=== PATIENT | male | born 1970 | race Caucasian/White ===

== ENCOUNTER → 2019-09-12 | Outpatient (CLI) | payer BC ==
[~2019-09-12] MED LIST: BARIUM for suspension 96% w/w (Vanilla Silq Medium Density) PO ONE; BARIUM for suspension 98% w/w (Vanilla Silq High Density) PO ONE
--- NOTE | 2019-09-12 11:11 | Diagnostic Imaging Report ---
INDICATION: Preoperative for gastric sleeve surgery. The patient ingested effervescent crystals as well as thin and thick barium and imaging of the esophagus, stomach and proximal small bowel was performed. 1 minute 19 seconds of fluoroscopic time was utilized. The esophagus has a smooth contour. No mass or stricture is identified. No gastroesophageal reflux or hiatal hernia is identified. The stomach has a normal configuration. There is prompt emptying into the small bowel. The duodenal bulb is without deformity. No mass or ulceration is seen. IMPRESSION: Unremarkable upper gastrointestinal. Dictated by: Dictated on workstation # [id number]
== END ==
LOC: RAD 09:07
PROVIDERS: ATTEND Nurse Practitioner Family
DX: K21.9 Gastro-esophageal reflux disease without esophagitis (principal)
CPT/HCPCS: 74246

== ENCOUNTER 2019-10-21 09:24 | Outpatient (CLI) | payer BC ==
[~2019-10-21] VITALS: Ht 175 cm; Wt 138.2 kg
[2019-10-21] MEDS ORDERED: MELO15TA39 PO (09:34)
[2019-10-21 09:37] VITALS: BP 131/81
[2019-10-21 10:28] LABS: BASOPHILS % (AUTO) 0 % (0-10); EOSINOPHILS # (AUTO) 0.1 10^3/uL (0.0-0.3); EOSINOPHILS % (AUTO) 2 % (0-10); HEMATOCRIT 47 % (40-54); HEMOGLOBIN 15.8 G/DL (13.3-17.7); LYMPHOCYTES # (AUTO) 1.3 X 10^3 (1.0-4.0); LYMPHOCYTES % (AUTO) 24 % (12-44); MEAN CORPUSCULAR HEMOGLOBIN 27 PG (25-34); MEAN CORPUSCULAR HGB CONC 34 G/DL (32-36); MEAN CORPUSCULAR VOLUME 80 FL (80-99); MONOCYTES # (AUTO) 0.5 X 10^3 (0.0-1.0); MONOCYTES % (AUTO) 9 % (0-12); NEUTROPHILS # (AUTO) 3.5 X 10^3 (1.8-7.8); NEUTROPHILS % (AUTO) 65 % (42-75); PLATELET COUNT 109 10^3/uL (130-400); RED CELL DISTRIBUTION WIDTH 14.3 % (10.0-14.5); WHITE BLOOD COUNT 5.3 10^3/uL (4.3-11.0)
== END 2019-10-21 10:22 ==
LOC: PREOP 09:24
PROVIDERS: ATTEND Surgery
DX: Z01.812 Encounter for preprocedural laboratory examination (principal); Z11.2 Encounter for screening for other bacterial diseases; E66.01 Morbid (severe) obesity due to excess calories
CPT/HCPCS: 36415; 85025; 87081

== ENCOUNTER 2019-10-24 11:12 | Day surgery (SDC) | payer BC ==
[~2019-10-24] VITALS: Ht 175 cm; Wt 136.4 kg
[2019-10-24] VITALS (13 sets, daily range): BP systolic 93–165; BP diastolic 52–89
[~2019-10-24 11:12] MED LIST changes: -BARIUM for suspension 96% w/w (Vanilla Silq Medium Density) PO ONE; -BARIUM for suspension 98% w/w (Vanilla Silq High Density) PO ONE; +MELO15TA39 PO
[2019-10-24] MEDS ORDERED: ceFAZolin 2 GM/50 ML NS 50 ML ONE (11:37)
[2019-10-24] MEDS: LACTATED RINGERS 1,000 ML IV PRN ×3 (11:48→16:47)
[2019-10-24] MEDS ORDERED: NS IV 1000 ML 1,000 ML IV SCH (11:56)
--- NOTE | 2019-10-24 11:56 | Progress Note-Pre Operative ---
Pre-Operative Progress Note H&P Reviewed The H&P was reviewed, patient examined and no changes noted. Date Seen by Provider: Oct 24, 2019 Time Seen by Provider: 11:50 Date H&P Reviewed: Oct 24, 2019 Time H&P Reviewed: 11:50 Pre-Operative Diagnosis: morbid obesity, HTN, VIVI HARRISON SAUL MD Oct 24, 2019 11:56
[2019-10-24] MEDS ORDERED: NALOXONE 0.4 MG/ML 1 ML (NARCAN) VIAL IV PRN (12:00)
[2019-10-24] MEDS ORDERED: fentaNYL INJECTION 1,000 MCG in NS (IVPB) 80 ML IV SCH (12:00)
[2019-10-24] MEDS ORDERED: ceFAZolin 2 GM/50 ML NS 50 ML IV ONE (12:00)
[2019-10-24] MEDS ORDERED: METOCLOPRAMIDE INJ 10 MG/2 ML (REGLAN) IV PRN (12:00)
[2019-10-24] MEDS ORDERED: metroNIDAZOLE 500MG/100ML IVPB 100 ML IV SCH (12:00)
[2019-10-24] MEDS ORDERED: diphenhydrAMINE 50 MG/ML INJ (BENADRYL) IV PRN (12:00)
[2019-10-24] MEDS ORDERED: CATHETER FLUSH 10 ML SYR IV PRN (12:00)
[2019-10-24] MEDS ORDERED: diphenhydrAMINE 50 MG/ML INJ (BENADRYL) IVP PRN (12:00)
[2019-10-24] MEDS ORDERED: ONDANSETRON 4 MG/2 ML (SDV) Z0FRAN IV ONE (12:15)
[2019-10-24] MEDS ORDERED: FAMOTIDINE 20MG/2ML IV (PEPCID) IV ONE (12:15)
[2019-10-24] MEDS ORDERED: BUP/EPI 0.5% 1:200,000 (SENSORCAINE) 30 ML VIAL ONE (13:08)
[2019-10-24] MEDS ORDERED: ONDANSETRON 4 MG/2 ML (SDV) Z0FRAN ONE ×3 (13:20→15:34)
[2019-10-24] MEDS ORDERED: MIDAZOLAM 2 MG/2 ML (VERSED) VIAL ONE ×2 (13:20→13:24)
[2019-10-24] MEDS ORDERED: LIDOCAINE PF 2% 5 ML (XYLOCAINE) VIAL ONE ×2 (13:20→13:24)
[2019-10-24] MEDS ORDERED: SEVOFLURANE (ULTANE) 15 ML INHAL SOLN ONE ×5 (13:20→16:30)
[2019-10-24] MEDS ORDERED: DEXAMETHASONE 10 MG/ML (DECADRON) 1 ML VIAL ONE ×2 (13:20→13:24)
[2019-10-24] MEDS ORDERED: proPOfol 200 MG/20 ML (DIPRIVAN) VIAL IV ONE ×2 (13:20→13:24)
[2019-10-24] MEDS ORDERED: fentaNYL INJECTION 100 MCG/2 ML AMP ONE ×6 (13:20→17:47)
[2019-10-24] MEDS ORDERED: ROCURONIUM 10 MG/ML 5 ML SYRINGE IV ONE ×2 (13:24→15:29)
[2019-10-24] MEDS ORDERED: ceFAZolin 2 GM/50 ML NS 50 ML IV SCH (14:00)
--- NOTE | 2019-10-24 14:22 | Discharge Inst-Surgical ---
D/C Lap Instructions-DORYS Follow Up Appt in 2 weeks Activity as tolerated No driving for 24 hours No driving while on pain medications Incentive Spirometry use every 2 hours while awake Phase 1 clear liquid diet next 2 weeks. Symptoms to Report: Fever over 101 degree F, Nausea/Vomiting Infection Signs and Symptoms to report: Increased redness, Foul odor of wound, Increased drainage Bathing instructions: May shower Operative Area Clean/Dry; Keep incision clean/dry If any problems/questions: Contact your physician or go to Emergency Room HARRISON SAUL MD Oct 24, 2019 14:22
[2019-10-24] MEDS ORDERED: HYDROmorphone 2 MG/ML VIAL (DILAUDID) ONE (15:33)
[2019-10-24] MEDS ORDERED: morphine INJ 10 MG/ML 1ML (SYR OR VIAL) ONE (15:33)
[2019-10-24] MEDS ORDERED: MEPERIDINE (DEMEROL) INJ 50 MG/ML ONE (15:33)
[2019-10-24] MEDS ORDERED: PROMETHAZINE INJ 25 MG/ML (PHENERGAN) AMP ONE (15:34)
[2019-10-24] MEDS ORDERED: GLYCOPYRROLATE 0.2 MG/ML (ROBINUL) 2 ML VIAL ONE (15:54)
[2019-10-24] MEDS ORDERED: NEOSTIGMINE 3 MG/3 ML VIAL ONE (15:54)
--- NOTE | 2019-10-24 16:06 | Progress Note-Post Operative ---
Post-Operative Progess Note Surgeon (s)/Machine Bobbin Winder (s) Surgeon HARRISON SAUL MD Machine Bobbin Winder: georgina martinez EQUITY SALES ASSISTANT Pre-Operative Diagnosis morbid obesity, HTN, VVII Post-Operative Diagnosis same Procedure & Operative Findings Date of Procedure 10/24/19 Procedure Performed/Findings laparoscopic gastric sleeve resection Anesthesia Type get Estimated Blood Loss Estimated blood loss (mL): minimal Specimens/Packing Specimens Removed stomach HARRISON SAUL MD Oct 24, 2019 16:06
[2019-10-24] MEDS ORDERED: morphine INJ 10 MG/ML 1ML (SYR OR VIAL) IVP ONE (16:30)
[2019-10-24] MEDS ORDERED: MEPERIDINE (DEMEROL) INJ 50 MG/ML IVP ONE (16:30)
[2019-10-24] MEDS ORDERED: PROMETHAZINE INJ 25 MG/ML (PHENERGAN) AMP IVP ONE (16:30)
[2019-10-24] MEDS ORDERED: HYDROmorphone 2 MG/ML VIAL (DILAUDID) IV ONE (16:30)
--- NOTE | 2019-10-24 17:03 | Anesthesia-General Post-Op ---
General Patient Condition Mental Status/LOC: Same as Preop Cardiovascular: Satisfactory Nausea/Vomiting: Absent Respiratory: Satisfactory Pain: Controlled Complications: Absent Post Op Complications Complications None Follow Up Care/Instructions Patient Instructions None needed. Anesthesia/Patient Condition Patient Condition Patient is doing well, no complaints, stable vital signs, no apparent adverse anesthesia problems. No complications reported per nursing. LATRICIA MOFFETT CRNA Oct 24, 2019 17:03
[2019-10-24] MEDS: ONDANSETRON 4 MG/2 ML (SDV) Z0FRAN IVP PRN ×2 (17:11→17:17)
[2019-10-24] MEDS: 1/2 NS W/KCL 20 MEQ/L 1,000 ML IV SCH ×2 (17:41→18:21)
[2019-10-24] MEDS: RT-ALBUTEROL SULF 2.5 MG/3 ML PRE-MIX VIAL INH SCH ×3 (17:41→20:46)
[2019-10-24] MEDS: METOCLOPRAMIDE INJ 10 MG/2 ML (REGLAN) IVP SCH ×2 (17:42→18:38)
[2019-10-24] MEDS: ONDANSETRON 4 MG/2 ML (SDV) Z0FRAN IVP SCH ×2 (17:43→18:38)
--- NOTE | 2019-10-24 18:33 | NUR ---
ROB SUMMERS admitted to room 410-1, with an admitting diagnosis of POST OP GASTRIC SLEEVE, on from [facility], accompanied by STAFF AND GIRLFRIEND .ROB SUMMERS introduced to surroundings, call light, bed controls, phone, TV, temperature control, lights, meal times, smoking policy, visitor policy, side rail policy, bathrooms and showers. Patient Rights given to patient in the handbook. ROB SUMMERS verbalizes understanding that [facility] is not responsible for the loss or damage to any personal effects or valuables that are kept in the patients posession during their hospitalization. The following Patient Care Plans and discharge were discussed with the patient. ROB SUMMERS verbalizes understanding of Interdisciplinary Patient Education. Patient were informed about the Rapid Response Team and its purpose.
[2019-10-24] MEDS: ceFAZolin 2 GM/NS 50 ML (COMPOUNDED) IV SCH (19:30)
[2019-10-24] MEDS: metroNIDAZOLE 500 MG/100 ML IVPB (PRE-MIX) IV SCH (19:30)
[2019-10-24] MEDS ORDERED: FLU QUADRIvalent (5+ YOA) 2019-2020 (AFLURIA) 0.5 ML IM ONE (20:30)
[2019-10-24] MEDS ORDERED: RT-ALBUTEROL/IPRATROPIUM 3 ML (DUONEB) VIAL ONE (20:36)
[2019-10-24] MEDS: ENOXAPARIN 40 MG/0.4 ML (LOVENOX) SYR SC SCH (21:10)
--- NOTE | 2019-10-24 21:53 | NUR ---
PCT notified this RN that pt blood pressure was 93/52. Retook the blood pressure and it was 99/65. Notified Dr. Tripathi, received order for 1L Bolus LR.
[2019-10-24] MEDS ORDERED: LACTATED RINGERS 1,000 ML IV ONE (22:00)
--- NOTE | 2019-10-24 22:44 | OPERATIVE REPORT ---
DATE OF SERVICE: 10/24/2019 ATTENDING PRIMARY CARE PHYSICIAN: Dr. Sid Weeks. PREOPERATIVE DIAGNOSES: Morbid obesity, hypertension, sleep apnea. POSTOPERATIVE DIAGNOSES: Morbid obesity, hypertension, sleep apnea. PROCEDURE: Laparoscopic gastric sleeve resection. SURGEON: Harrison Saul MD. EDUCATION ADMINISTRATIVE ASSISTANT: Omer Hart APRN. ANESTHESIA: General endotracheal. ESTIMATED BLOOD LOSS: Minimal. FINDINGS: Moderate liver steatosis with nodular changes. Gallbladder appeared normal. No hiatal hernia. DISPOSITION: The patient tolerated the procedure well. INDICATIONS: The patient is a 48-year-old male in her surgical weight loss program for the laparoscopic gastric sleeve resection and meets the medical criteria for bariatric surgery. He gained the majority of his adult weight in the past 20 years and has tried a number of diet and exercise attempts with no success. He has tried diet programs including [place] ketogenic diet, low calorie, low carbohydrate, Weight Watchers, SlimFast diets with no success. He has also tried exercise regimens including walking with no success. He has also tried phentermine and was able to lose approximately 30 pounds; however, after stopping the medication, regained his weight back as well as more. His medical comorbidities related to his obesity include hypertension, obstructive sleep apnea, nonalcoholic steatohepatitis, and degenerative joint disease. DESCRIPTION OF PROCEDURE: The patient was brought to the operating room, laid supine on the table. After adequate IV pain and sedative medications and general endotracheal intubation, the abdomen was prepped and draped in standard surgical fashion. A 0.5% Marcaine with epinephrine was used to anesthetize overlying skin left upper abdominal quadrant and a transverse skin incision made using 15 blade. An 0 silk suture was applied to the medial aspect incision for retraction and a Veress needle inserted with a low opening pressure of 0 mmHg and the abdomen was then insufflated to 15 mmHg pressure. The Veress needle removed and a 5 mm XL trocar placed followed by a 5 mm 45-degree angle laparoscope visualizing the peritoneal cavity. A 4-quadrant abdominal exploration was performed. There was significant liver steatosis with some nodular changes. Gallbladder appeared normal. There was no hiatal hernia identified. Under direct visualization, we then proceeded to place a midabdominal left midline 10 mm port after the skin and peritoneal lining were anesthetized using 0.5% Marcaine with epinephrine and a transverse skin incision made using 15 blade. In a similar manner, a midabdominal left, right of midline 15 mm port was placed followed by a right upper abdominal quadrant 5 mm port. An area was then anesthetized in the epigastric region and a transverse skin incision made using 15 blade. A tract was then created to the abdominal wall layers using a trocar to a 5 mm port and through this opening, a medium size Ros Liver Retractor was placed and the left lobe of the liver was then retracted anteriorly and superiorly. The patient was then placed in steep reverse Trendelenburg position. We then measured 6 cm from the pylorus along the greater curvature and marked this with a marking pen. The gastrocolic ligament was then opened next to the stomach using the Sonicision entering the lesser sac. We then proceeded with caudal dissection until we were approximately 2 cm below our marking using the Sonicision with visualization of good hemostasis. We then proceeded cephalad taking the short gastric vessels using the Sonicision. The angle of His connective tissue fibers were then taken down as well as the posterior stomach behind this region. Good hemostasis was observed. Under direct visualization, a 36-N[place]ian ViSiGi catheter was then placed in the stomach and then under direct visualization and guided into the pylorus. Using this as our guide, we then proceeded with our gastric sleeve resection, first using a 45 mm polyglycolic black load 2 cm below our marking. We then proceeded with two 60 mm black loads followed by 60 mm purple load and a 45 mm purple load to finish our gastric sleeve resection leaving approximately 2 cm near the gastroesophageal junction. Good hemostasis was observed. The staple line corners were then clipped with 5 mm clips. Tisseel fibrin glue was then placed onto the staple line and the omentum placed back onto the staple line. Before this, a leak test was performed and the ViSiGi was insufflated to 35 of pressure with no leak identified. The ViSiGi was then placed to suction taken off suction and then removed. The stomach was then removed through the 15 mm port site. The fascia and peritoneum to the 15 and 10 mm port site were then closed under direct visualization using a Gus-Annette device and 0 Vicryl suture. The abdomen was then desufflated and remaining ports removed. All skin incisions were closed using 4-0 Monocryl running subcuticular sutures. Wounds were then cleaned and covered with Dermabond. The patient tolerated the procedure well. We will admit him 23-hour observation. We will proceed with pain control with a EXECUTIVE ADMINISTRATIVE ASST pump. We will also proceed with DVT prophylaxis with calf SCDs, early ambulation as well as Lovenox injections. He can have ice chips today and then we will proceed with a phase I clear liquid diet. Once he is tolerating 60 mL of clear liquids every 30 minutes, has adequate pain control with oral pain medications, ambulating well, we will discharge him home. He will be instructed to proceed with a phase 1 clear liquid diet for the next two weeks as well as to avoid any lifting or exertion for that time period as well. Job ID: [id number] DocumentID: [id number] Dictated Date: 10/24/2019 16:16:51 Visitor Services Assistant Date: 10/24/2019 22:43:04 Dictated By: HARRISON SAUL MD
[2019-10-25] VITALS: BP 131/58
[2019-10-25] MEDS: ONDANSETRON 4 MG/2 ML (SDV) Z0FRAN IVP SCH ×3 (00:10→09:29)
[2019-10-25] MEDS: METOCLOPRAMIDE INJ 10 MG/2 ML (REGLAN) IVP SCH ×2 (00:10→06:20)
[2019-10-25] MEDS: ONDANSETRON 4 MG/2 ML (SDV) Z0FRAN IVP PRN ×2 (02:51→12:39)
[2019-10-25] MEDS: metroNIDAZOLE 500 MG/100 ML IVPB (PRE-MIX) IV SCH ×2 (03:31→11:25)
[2019-10-25] MEDS: ceFAZolin 2 GM/NS 50 ML (COMPOUNDED) IV SCH ×2 (03:31→11:25)
[2019-10-25] MEDS: RT-ALBUTEROL SULF 2.5 MG/3 ML PRE-MIX VIAL INH SCH ×4 (03:55→14:54)
[2019-10-25 04:00] VITALS: BP 116/73
[2019-10-25] MEDS: 1/2 NS W/KCL 20 MEQ/L 1,000 ML IV SCH (04:57)
[2019-10-25 06:01] LABS: HEMATOCRIT 38 % (40-54); HEMOGLOBIN 12.6 G/DL (13.3-17.7); MEAN CORPUSCULAR HEMOGLOBIN 27 PG (25-34); MEAN CORPUSCULAR HGB CONC 33 G/DL (32-36); MEAN CORPUSCULAR VOLUME 81 FL (80-99); MEAN PLATELET VOLUME 12.2 FL (7.4-10.4); PLATELET COUNT 200 10^3/uL (130-400); RED CELL DISTRIBUTION WIDTH 14.2 % (10.0-14.5); WHITE BLOOD COUNT 22.4 10^3/uL (4.3-11.0)
[2019-10-25 06:27] LABS: CALCIUM 8.1 MG/DL (8.5-10.1); CREATININE SERUM 1.52 MG/DL (0.60-1.30); POTASSIUM 5.5 MMOL/L (3.6-5.0)
[2019-10-25 06:46] LABS: LYMPHOCYTES % (MANUAL) 2 %; MONOCYTES % (MANUAL) 2 %; NEUTROPHILS % (MANUAL) 96 %; RBC MORPH NORMAL
[2019-10-25 08:00] VITALS: BP 119/80
[2019-10-25] MEDS: SENNA W/DOCUSATE (SENOKOT S) TABLET PO SCH (09:00)
[2019-10-25] MEDS ORDERED: PANTOPRAZOLE 40 MG (PROTONIX) TAB PO SCH (09:00)
[2019-10-25] MEDS: oxyCODONE 5 MG/5 ML ORAL SOLN (roxiCODONE) 5 ML UDC PO PRN ×3 (09:30→19:26)
[2019-10-25] MEDS: PANTOPRAZOLE 40 MG (PROTONIX) VIAL IV SCH (09:34)
[2019-10-25] MEDS: ENOXAPARIN 40 MG/0.4 ML (LOVENOX) SYR SC SCH ×2 (09:35→19:27)
--- NOTE | 2019-10-25 11:28 | Progress Note ---
Subjective Date Seen by a Provider: Oct 25, 2019 Time Seen by a Provider: 11:00 Subjective/Events-last exam doing well. no SOB. has abd pain however controlled with pain med. sitting upright. no fever/chills. just started clears. Objective Exam Vital Signs Date Time Temp Pulse Resp B/P (MAP) Pulse Ox O2 Delivery O2 Flow Rate FiO2 10/25/19 08:00 35.8 117 18 119/80 (93) 91 Room Air 10/25/19 07:30 90 Room Air 10/25/19 04:00 36.4 101 18 116/73 (87) 96 Nasal Cannula 3.00 10/25/19 03:57 97 Nasal Cannula 3.00 10/25/19 00:00 36.6 110 18 131/58 (82) 95 Nasal Cannula 3.00 10/24/19 21:00 95 Nasal Cannula 3.00 10/24/19 21:00 99/62 (74) 10/24/19 20:47 94 Nasal Cannula 3.00 10/24/19 20:00 37.2 101 16 93/52 (66) 95 Nasal Cannula 3.00 10/24/19 17:41 36.5 81 16 121/59 94 Nasal Cannula 3.00 10/24/19 17:30 36.4 18 138/72 (94) 96 Nasal Cannula 3 10/24/19 17:30 Nasal Cannula 3 10/24/19 17:25 Nasal Cannula 3 10/24/19 17:20 16 136/74 (94) 96 Nasal Cannula 3 10/24/19 17:10 26 139/79 (99) 93 OxyMask 5 10/24/19 17:10 OxyMask 6 10/24/19 17:00 22 129/71 (90) 92 OxyMask 6 10/24/19 16:55 OxyMask 8 10/24/19 16:50 12 134/70 (91) 95 OxyMask 8 10/24/19 16:40 18 134/77 (96) 96 OxyMask 8 10/24/19 16:40 OxyMask 8 10/24/19 16:30 20 139/81 (100) 94 OxyMask 10 10/24/19 16:25 OxyMask 10 10/24/19 16:25 36.8 16 134/76 (95) 96 OxyMask 10 10/24/19 16:00 37.2 105 16 165/71 (102) 96 Nasal Cannula 3.00 10/24/19 11:30 36.8 63 18 135/89 (104) 97 Room Air I & O 10/25/19 07:00 Intake Total 4350 ml Output Total 800 ml Balance 3550 ml Capillary Refill : Less Than 3 Seconds General Appearance: No Apparent Distress HEENT: PERRL/EOMI Neck: Full Range of Motion Respiratory: Chest Non Tender, Lungs Clear, Decreased Breath Sounds Cardiovascular: Regular Rate, Rhythm Gastrointestinal: normal bowel sounds, soft, tenderness Extremity: Normal Capillary Refill Neurologic/Psychiatric: Alert, Oriented x3 Skin: Normal Color Lymphatic: No Adenopathy Results Lab Laboratory Tests 10/25/19 04:10: White Blood Count 22.4H, Red Blood Count 4.68, Hemoglobin 12.6#L, Hematocrit 38L , Mean Corpuscular Volume 81, Mean Corpuscular Hemoglobin 27, Mean Corpuscular Hemoglobin Concent 33, Red Cell Distribution Width 14.2, Platelet Count 200, Me an Platelet Volume 12.2H, Neutrophils (%) (Auto) , Lymphocytes (%) (Auto) , Monocytes (%) (Auto) , Eosinophils (%) (Auto) , Basophils (%) (Auto) , Neutrophils # (Auto) , Lymphocytes # (Auto) , Monocytes # (Auto) , Eosinophils # (Auto) , Basophils # (Auto) , Neutrophils % (Manual) 96, Lymphocytes % (Manual) 2, Monocytes % (Manual) 2, Blood Morphology Comment NORMAL, Sodium Level 135, Potassium Level 5.5H, Chloride Level 104, Carbon Dioxide Level 19L, Anion Gap 12, Blood Urea Nitrogen 22H, Creatinine 1.52H, Estimat Glomerular Filtration Rate 49, BUN/Creatinine Ratio 14, Glucose Level 141H, Calcium Level 8.1L Assessment/Plan Assessment/Plan Assess & Plan/Chief Complaint s/p gastric sleeve resection. ambulate. start phase 1 clear liquid diet. increase K however may be lab error, will d/c K and repeat labs. Clinical Quality Measures DVT/VTE Risk/Contraindication: Risk Factor Score Per Nursin RFS Level Per Nursing on Admit: 3=High HARRISON SAUL MD Oct 25, 2019 11:28
[2019-10-25 12:00] VITALS: BP 127/80
[2019-10-25] MEDS: 1/2 NS IV SOLUTION 1,000 ML IV SCH ×3 (12:33→19:24)
[2019-10-25] MEDS: METOCLOPRAMIDE INJ 10 MG/2 ML (REGLAN) IVP PRN ×2 (12:39→23:45)
[2019-10-25] MEDS: ONDANSETRON 4 MG/2 ML (SDV) Z0FRAN IV PRN ×3 (12:40→23:45)
[2019-10-25 13:45] LABS: BASOPHILS % (AUTO) 0 % (0-10); EOSINOPHILS % (AUTO) 0 % (0-10); HEMATOCRIT 35 % (40-54); HEMOGLOBIN 11.6 G/DL (13.3-17.7); LYMPHOCYTES # (AUTO) 2.2 X 10^3 (1.0-4.0); LYMPHOCYTES % (AUTO) 8 % (12-44); MEAN CORPUSCULAR HEMOGLOBIN 27 PG (25-34); MEAN CORPUSCULAR HGB CONC 33 G/DL (32-36); MEAN CORPUSCULAR VOLUME 82 FL (80-99); MEAN PLATELET VOLUME 10.9 FL (7.4-10.4); MONOCYTES # (AUTO) 2.1 X 10^3 (0.0-1.0); MONOCYTES % (AUTO) 8 % (0-12); NEUTROPHILS # (AUTO) 21.6 X 10^3 (1.8-7.8); NEUTROPHILS % (AUTO) 84 % (42-75); PLATELET COUNT 189 10^3/uL (130-400); RED CELL DISTRIBUTION WIDTH 14.3 % (10.0-14.5); WHITE BLOOD COUNT 25.9 10^3/uL (4.3-11.0)
[2019-10-25 14:04] LABS: CALCIUM 8.3 MG/DL (8.5-10.1); CREATININE SERUM 1.57 MG/DL (0.60-1.30); POTASSIUM 4.6 MMOL/L (3.6-5.0)
[2019-10-25] MEDS ORDERED: PIPERACILLIN/TAZOBACTAM (BULK) 4.5 GM in NS (IVPB) 100 ML IV NR (14:09)
[2019-10-25 15:10] LABS: BAND NEUTROPHILS 4 %; BASOPHILS % (MANUAL) 0 %; EOSINOPHILS % (MANUAL) 0 %; LYMPHOCYTES % (MANUAL) 7 %; MONOCYTES % (MANUAL) 6 %; NEUTROPHILS % (MANUAL) 83 %; RBC MORPH NORMAL
[2019-10-25 15:40] LABS: BILIRUBIN,URINE NEGATIVE (NEGATIVE); CLARITY,URINE CLEAR; COLOR,URINE YELLOW; GLUCOSE, URINE (UA) NEGATIVE (NEGATIVE); KETONES,URINE TRACE (NEGATIVE); LEUKOCYTE ESTERASE ,URINE 2+ (NEGATIVE); NITRITE,URINE NEGATIVE (NEGATIVE); PH,URINE 5.5 (5-9); PROTEIN,URINE NEGATIVE (NEGATIVE)
--- NOTE | 2019-10-25 15:42 | NUR ---
PT WANTS FLU VAC, BUT HELD UNTIL DISMISSAL BECAUSE WBC 22.4. DR SAUL AWARE OF HIGH WBC AND NEW ORDERS NOTED. UA SENT TO LAB. ZOSYN STARTED IV AND CHEST X-RAY DONE. PT. STATES HE FEELING BETTER AT THIS TIME. SITTING UP IN CHAIR.
--- NOTE | 2019-10-25 15:48 | Diagnostic Imaging Report ---
INDICATION: Elevated white blood cell count. TIME OF EXAM: 3:31 p.m. COMPARISON: No prior studies are available for comparison. FINDINGS: Heart size is enlarged. There is mild elevation of the right hemidiaphragm. There is some subsegmental atelectasis in the left base. Otherwise, the lungs are clear. The pulmonary vascularity is normal. There is no effusion or pneumothorax. IMPRESSION: Increased cardiac size which may in part be owing to portable technique. There does appear to be subsegmental atelectasis in the left base. Dictated by: Dictated on workstation # [id number]
[2019-10-25 15:54] LABS: BACTERIA,URINE TRACE /HPF; HYALINE CASTS, URINE 25-50 /LPF; RBC,URINE 50-100 /HPF; SQUAMOUS EPITHELIAL CELL,UR RARE /HPF
[2019-10-25 15:58] VITALS: BP 116/56
[2019-10-25] MEDS: PIPERACILLIN/TAZOBACTAM (BULK) 4.5 GM in NS (IVPB) 100 ML IV SCH (19:27)
[2019-10-25 19:52] VITALS: BP 118/56
[2019-10-25] MEDS ORDERED: RT-ALBUTEROL SULF 2.5 MG/3 ML PRE-MIX VIAL INH SCH (22:00)
[2019-10-26] VITALS: BP 131/74
[2019-10-26] MEDS: 1/2 NS IV SOLUTION 1,000 ML IV SCH (01:42)
[2019-10-26 04:00] VITALS: BP 127/61
[2019-10-26] MEDS: PIPERACILLIN/TAZOBACTAM (BULK) 4.5 GM in NS (IVPB) 100 ML IV SCH (05:03)
[2019-10-26] MEDS: ONDANSETRON 4 MG/2 ML (SDV) Z0FRAN IVP PRN (05:03)
[2019-10-26] MEDS: oxyCODONE 5 MG/5 ML ORAL SOLN (roxiCODONE) 5 ML UDC PO PRN (05:04)
[2019-10-26 05:38] LABS: HEMOGLOBIN 10.1 G/DL (13.3-17.7); MEAN PLATELET VOLUME 11.4 FL (7.4-10.4); RED CELL DISTRIBUTION WIDTH 14.2 % (10.0-14.5); WHITE BLOOD COUNT 19.6 10^3/uL (4.3-11.0)
[2019-10-26 06:03] LABS: CALCIUM 8.2 MG/DL (8.5-10.1); CREATININE SERUM 1.37 MG/DL (0.60-1.30); POTASSIUM 4.5 MMOL/L (3.6-5.0)
[2019-10-26] MEDS: PANTOPRAZOLE 40 MG (PROTONIX) VIAL IV SCH (07:54)
[2019-10-26] MEDS: SENNA W/DOCUSATE (SENOKOT S) TABLET PO SCH (07:54)
[2019-10-26] MEDS: ENOXAPARIN 40 MG/0.4 ML (LOVENOX) SYR SC SCH (07:54)
[2019-10-26 08:16] VITALS: BP 109/54
--- NOTE | 2019-10-26 11:17 | Progress Note ---
Subjective Date Seen by a Provider: Oct 26, 2019 Time Seen by a Provider: 11:00 Subjective/Events-last exam doing much better today. tolerating phase 1 clear liquid diet. ambulating well. no fever/chills. positive UTI. leukocytosis resolving. abd wall subcutaneous eccymosis. Objective Exam Vital Signs Date Time Temp Pulse Resp B/P (MAP) Pulse Ox O2 Delivery O2 Flow Rate FiO2 10/26/19 09:06 91 Room Air 10/26/19 08:16 37.0 104 20 109/54 (72) 91 Room Air 10/26/19 07:00 21 10/26/19 05:35 37.0 10/26/19 05:04 37.0 10/26/19 04:00 37.0 106 21 127/61 (83) 92 Room Air 10/26/19 00:00 37.6 107 20 131/74 (93) 90 Room Air 10/25/19 20:30 97 Room Air 10/25/19 20:00 37.5 10/25/19 19:52 37.5 111 18 118/56 (76) 91 Room Air 10/25/19 19:26 37.2 10/25/19 15:58 37.2 109 18 116/56 (76) 90 Room Air 10/25/19 15:00 18 10/25/19 14:54 91 Room Air 10/25/19 12:00 36.9 110 18 127/80 (96) 90 Room Air 10/25/19 11:36 93 Room Air I & O 10/26/19 07:00 Intake Total 3370 ml Output Total 1250 ml Balance 2120 ml Capillary Refill : Less Than 3 Seconds General Appearance: No Apparent Distress HEENT: PERRL/EOMI Neck: Full Range of Motion Respiratory: Chest Non Tender, Lungs Clear, Decreased Breath Sounds Cardiovascular: Regular Rate, Rhythm Gastrointestinal: normal bowel sounds, soft, tenderness, other (abd wall subcutaneous eccymosis, no hematoma) Extremity: Normal Capillary Refill Neurologic/Psychiatric: Alert, Oriented x3 Skin: Normal Color Lymphatic: No Adenopathy Results Lab Laboratory Tests 10/25/19 13:39: White Blood Count 25.9H, Red Blood Count 4.26L, Hemoglobin 11.6L, Hematocrit 35L , Mean Corpuscular Volume 82, Mean Corpuscular Hemoglobin 27, Mean Corpuscular Hemoglobin Concent 33, Red Cell Distribution Width 14.3, Platelet Count 189, Mean Platelet Volume 10.9H, Neutrophils (%) (Auto) 84H, Lymphocytes (%) (Auto) 8L, Monocytes (%) (Auto) 8, Eosinophils (%) (Auto) 0, Basophils (%) (Auto) 0, Neutrophils # (Auto) 21.6H, Lymphocytes # (Auto) 2.2, Monocytes # (Auto) 2.1H, Eosinophils # (Auto) 0.0, Basophils # (Auto) 0.0, Neutrophils % (Manual) 83, Lymphocytes % (Manual) 7, Monocytes % (Manual) 6, Eosinophils % (Manual) 0, Basophils % (Manual) 0, Band Neutrophils 4, Blood Morphology Comment NORMAL, Sodium Level 134L, Potassium Level 4.6, Chloride Level 105, Carbon Dioxide Level 18L, Anion Gap 11, Blood Urea Nitrogen 27H, Creatinine 1.57H, Estimat Glomerular Filtration Rate 47, BUN/Creatinine Ratio 17, Glucose Level 149H, Calcium Level 8.3L 10/25/19 15:20: Urine Color YELLOW, Urine Clarity CLEAR, Urine pH 5.5, Urine Specific [place] 1.025H, Urine Protein NEGATIVE, Urine Glucose (UA) NEGATIVE, Urine Ketones TRACEH, Urine Nitrite NEGATIVE, Urine Bilirubin NEGATIVE, Urine Urobilinogen 0.2, Urine Leukocyte Esterase 2+H, Urine RBC (Auto) 3+H, Urine RBC 50-100H, Urine WBC 10-25H, Urine Squamous Epithelial Cells RARE, Urine Crystals NONE, Urine Bacteria TRACE, Urine Casts PRESENT, Urine Hyaline Casts 25-50H, Urine Mucus NEGATIVE, Urine Culture Indicated YES 10/26/19 04:41: White Blood Count 19.6H, Red Blood Count 3.74L, Hemoglobin 10.1L, Hematocrit 31L , Mean Corpuscular Volume 82, Mean Corpuscular Hemoglobin 27, Mean Corpuscular Hemoglobin Concent 33, Red Cell Distribution Width 14.2, Platelet Count 157, Mean Platelet Volume 11.4H, Sodium Level 133L, Potassium Level 4.5, Chloride Level 102, Carbon Dioxide Level 23, Anion Gap 8, Blood Urea Nitrogen 27H, Creatinine 1.37H, Estimat Glomerular Filtration Rate 55, BUN/Creatinine Ratio 20, Glucose Level 121H, Calcium Level 8.2L Microbiology 10/25/19 Urine Culture - Final, Complete NO GROWTH Assessment/Plan Assessment/Plan Assess & Plan/Chief Complaint s/p gastric sleeve resection. doing much better. tolerating clears. ambulating well. positive UTI. leukocytosis resolving. will continue PO abx. abd binder for eccymosis. Clinical Quality Measures DVT/VTE Risk/Contraindication: Risk Factor Score Per Nursin RFS Level Per Nursing on Admit: 3=High HARRISON SAUL MD Oct 26, 2019 11:17
--- NOTE | 2019-10-26 11:25 | NUR ---
Abdominal dressing changed. Abdominal binder applied. Provided patient teaching on dressing change and abdominal binders. Patient voices understanding of teaching. Patient declined flu vaccine.
--- NOTE | 2019-10-26 11:26 | NUR ---
35ml wasted from [employer]ent[employer]
== END 2019-10-26 11:30 | disposition home or self-care (01) ==
LOC: SDC 11:12 → 4TH 17:48 → SDC 10-26 11:30
PROVIDERS: ATTEND Surgery
DX: E66.01 Morbid (severe) obesity due to excess calories (principal); K76.0 Fatty (change of) liver, not elsewhere classified; G47.33 Obstructive sleep apnea (adult) (pediatric); I10 Essential (primary) hypertension; M17.0 Bilateral primary osteoarthritis of knee; F41.9 Anxiety disorder, unspecified; Z90.89 Acquired absence of other organs; Z79.899 Other long term (current) drug therapy; Z83.3 Family history of diabetes mellitus
CPT/HCPCS: 36415; 71045; 80048; 81000; 85007; 85027; 87088; 94640; 94664; 94760

== ENCOUNTER 2019-10-27 14:59 | Inpatient (IN) | payer BC ==
[2019-10-27] VITALS (9 sets, daily range): BP systolic 94–141; BP diastolic 44–68
[~2019-10-27] VITALS: Ht 175.3 cm; Wt 151.0 kg
[2019-10-27] MEDS ORDERED: ACETAMINOPHEN 650 MG SUPP (TYLENOL) PR PRN (15:00)
[2019-10-27] MEDS ORDERED: VANCOMYCIN INJECTION 0.1 MG in NS (IVPB) 250 ML IV SCH (15:00)
[2019-10-27] MEDS ORDERED: ONDANSETRON 4 MG/2 ML (SDV) Z0FRAN IVP PRN (15:00)
--- NOTE | 2019-10-27 16:11 | HISTORY AND PHYSICAL ---
DATE OF SERVICE: ADMITTING PRIMARY CARE PHYSICIAN: Sid Weeks DO in [facility]. HISTORY OF PRESENT ILLNESS: The patient is a 48-year-old male known to us. He was in our surgical weight loss program for the gastric sleeve resection and met the medical criteria for bariatric surgery. 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 He has tried a number of diet and exercise attempts including [place], ketogenic diet, low calorie, Weight Watchers, high-protein, low-carbohydrate diet as well as Slimfast without any success. He has also tried exercise regimens again with no success. He has tried medications including phentermine and was able to lose approximately 30 pounds; however discontinuing the medication, he would regain all of his weight back. His medical comorbidities related to obesity include hypertension, obstructive sleep apnea. He had nonalcoholic steatohepatitis and degenerative joint disease. On 10/24/2019, he underwent a laparoscopic gastric sleeve resection. There were moderate liver steatosis as well as macronodular changes. The gallbladder appeared normal. He did well after the surgery and was sent to the general surgical floor. Postoperatively, he did have issues with nausea and vomiting as well as some mild shortness of breath due to his sleep apnea and was treated with his CPAP machine. He did have elevated leukocytosis and we did get a chest x-ray as well as urinalysis, which was positive. He was started on antibiotics. The following day, he felt much better. No fever, no chills and was tolerating a phase 1 clear liquid diet and ambulating well and had adequate pain control, and his white count was decreasing. He is being readmitted after being evaluated at [facility] for abdominal pain as well as shortness of breath. A CT scan of the chest was performed, which did not show any pulmonary embolism, however, bilateral atelectasis and pneumonia. There was also fluid in the left upper abdominal quadrant with some contrast extravasation consistent with a staple line leak. He is otherwise afebrile and has stable vital signs. We will admit him to the ICU, continue with IV vancomycin and Zosyn, keep him n.p.o. and IV hydrate and then proceed with a diagnostic laparoscopy as well as repair of leak. PAST MEDICAL HISTORY: Hypertension, obstructive sleep apnea, morbid obesity, nonalcoholic steatohepatitis, degenerative joint disease. PAST SURGICAL HISTORY: Repair of deviated septum in 1985, ORIF left ankle in 2018, tonsillectomy ALLERGIES: No known drug allergies. MEDICATIONS: Mobic 15 mg daily. SOCIAL HISTORY: Negative smoke. Rare alcohol. FAMILY HISTORY: Father with diabetes. VITAL SIGNS: Blood pressure 140/80, current weight 304 pounds with a body mass index of 44.9, height 5 feet 9 inches. REVIEW OF SYSTEMS: Well-nourished male, currently guarded secondary to the abdominal pain. He is experiencing some shortness of breath, especially upon deep inspiration. There is pain upon deep inspiration as well. No cough or sputum production. He is not experiencing any nausea, no vomiting as well as no hematemesis, no coffee-ground emesis. No diarrhea or constipation. No red blood per rectum, no dark tarry stools. No fever, chills, no recent inadvertent weight loss. All other review of systems negative. PHYSICAL EXAMINATION: CHEST: Decreased breath sounds bilaterally at the lung bases. HEART: Regular, no murmurs. EXTREMITIES: No lower extremity edema, negative Homans sign. HEENT: No scleral icterus. NECK: No cervical lymphadenopathy. ABDOMEN: Slightly distended. There is some ecchymosis from a previous subcutaneous bleed. There is some mild pain upon palpation of the upper quadrants of the abdomen. SKIN: Warm and dry. ASSESSMENT AND PLAN: A 48-year-old male, status post gastric sleeve resection, postoperative day #3. We will IV hydrate and also continue with IV antibiotics with broad spectrum coverage including Zosyn and vancomycin and start the MAP protocol for his pneumonia and once deemed suitable for surgery, we will proceed with a diagnostic laparoscopy, irrigation as well as repair of the gastric leak. We will also proceed with DVT prophylaxis. Job ID: [id number] DocumentID: [id number] Dictated Date: 10/27/2019 15:20:59 Hoof And Shoe Inspector Date: 10/27/2019 16:10:17 Dictated By: HARRISON SAUL MD [facility]
--- NOTE | 2019-10-27 16:50 | NUR ---
ROB SUMMERS admitted to room CU5-1, with an admitting diagnosis of GASTRIC SLEEVE LEAK, on 10/27/19 from [place] via EMS, accompanied by STAFF.ROB SUMMERS introduced to surroundings, call light, bed controls, phone, TV, temperature control, lights, meal times, smoking policy, visitor policy, side rail policy, bathrooms and showers. Patient Rights given to patient in the handbook. ROB SUMMERS verbalizes understanding that [facility] is not responsible for the loss or damage to any personal effects or valuables that are kept in the patients posession during their hospitalization. The following Patient Care Plans were discussed with the PT: Discharge Planning, PAIN,FLUID VOLUME DEFICIT, and KNOWLEDGE DEFICIT. ROB SUMMERS verbalizes understanding of Interdisciplinary Patient Education. Patient and family were informed about the Rapid Response Team and its purpose.
--- NOTE | 2019-10-27 17:00 | NUR ---
PER CANDO RECORDS, PT RECEIVED ZOSYN 3.375GM IV AT 1214, VANCO 1GM IV AT 1403, AND CIPRO 400MG IV FINISHED INFUSING UPON ADMIT AT 1650.
[2019-10-27] MEDS ORDERED: fentaNYL INJECTION 100 MCG/2 ML AMP ONE ×3 (17:28→19:53)
[2019-10-27] MEDS: fentaNYL INJECTION 100 MCG/2 ML AMP IVP PRN ×4 (17:34→23:05)
--- NOTE | 2019-10-27 17:38 | NUR ---
DR MAN INFORMED OF PT'S ARRIVAL.
--- NOTE | 2019-10-27 17:39 | NUR ---
DR SAUL INFORMED OF PTS ARRIVAL AND UPDATED ON PT'S CONDITION.
[2019-10-27] MEDS: NS IV 1000 ML 1,000 ML IV SCH ×2 (17:54→21:50)
--- NOTE | 2019-10-27 17:54 | NUR ---
NS@150ML/HR INFUSING FROM [place].
[2019-10-27 19:01] LABS: BASOPHILS % (AUTO) 0 % (0-10); EOSINOPHILS # (AUTO) 0.1 10^3/uL (0.0-0.3); EOSINOPHILS % (AUTO) 0 % (0-10); HEMATOCRIT 33 % (40-54); HEMOGLOBIN 10.9 G/DL (13.3-17.7); LYMPHOCYTES # (AUTO) 2.6 X 10^3 (1.0-4.0); LYMPHOCYTES % (AUTO) 10 % (12-44); MEAN CORPUSCULAR HEMOGLOBIN 28 PG (25-34); MEAN CORPUSCULAR HGB CONC 33 G/DL (32-36); MEAN CORPUSCULAR VOLUME 84 FL (80-99); MEAN PLATELET VOLUME 10.9 FL (7.4-10.4); MONOCYTES # (AUTO) 1.9 X 10^3 (0.0-1.0); MONOCYTES % (AUTO) 7 % (0-12); NEUTROPHILS # (AUTO) 22.8 X 10^3 (1.8-7.8); NEUTROPHILS % (AUTO) 83 % (42-75); PLATELET COUNT 192 10^3/uL (130-400); RED CELL DISTRIBUTION WIDTH 14.8 % (10.0-14.5); WHITE BLOOD COUNT 27.5 10^3/uL (4.3-11.0)
[2019-10-27 19:12] LABS: INR 1.5 (0.8-1.4); PROTHROMBIN TIME PATIENT 18.8 SEC (12.2-14.7)
[2019-10-27 19:15] LABS: BAND NEUTROPHILS 10 %; LYMPHOCYTES % (MANUAL) 8 %; MONOCYTES % (MANUAL) 9 %; NEUTROPHILS % (MANUAL) 73 %
[2019-10-27 19:16] LABS: ANISOCYTOSIS SLIGHT; NUCLEATED RED BLOOD CELLS 4; POLYCHROMASIA SLIGHT
[2019-10-27 19:18] LABS: CALCIUM 8.1 MG/DL (8.5-10.1); CREATININE SERUM 2.04 MG/DL (0.60-1.30); POTASSIUM 6.3 MMOL/L (3.6-5.0)
--- NOTE | 2019-10-27 19:48 | NUR ---
Contacted Dr. Tripathi. Discussed inability to control pain. Upon arrival pain level was 12/10 on 0 to 10 scale, current pain level is 8/10 despite giving PRN ordered pain medication as ordered. 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 See order Hx for details.
[2019-10-27] MEDS ORDERED: fentaNYL INJECTION 5,000 MCG in EMPTY IV BAG (PVC) 1 EA IV SCH (20:00)
[2019-10-27] MEDS ORDERED: fentaNYL (OMNICELL DRIP KIT ONLY) 250 MCG/5 ML AMP ONE (20:10)
[2019-10-27] MEDS ORDERED: NS (IVPB) 100 ML ONE ×2 (20:10→20:39)
[2019-10-27] MEDS ORDERED: PIPERACILLIN/TAZO 4.5 GM VIAL (ZOSYN) IV ONE (20:38)
[2019-10-27] MEDS ORDERED: VANCOMYCIN 1000 MG/VIAL ONE (20:39)
[2019-10-27] MEDS ORDERED: NS (IVPB) 250 ML ONE (20:39)
[2019-10-27] MEDS ORDERED: LACTATED RINGERS 2,000 ML IV ONE (20:43)
[2019-10-27] MEDS ORDERED: LACTATED RINGERS 1,000 ML IV STA ×2 (20:44)
[2019-10-27] MEDS ORDERED: VANCOMYCIN INJECTION 2,000 MG in NS (IVPB) 250 ML IV ONE (20:45)
[2019-10-27] MEDS ORDERED: LIDOCAINE UROJET 2% GEL 10 ML PKG ONE (20:46)
[2019-10-27] MEDS ORDERED: PIPERACILLIN/TAZO 4.5 GM/NS 100 ML IV ONE ×2 (21:00)
[2019-10-27] MEDS ORDERED: ENOXAPARIN 40 MG/0.4 ML (LOVENOX) SYR SC ONE (21:00)
[2019-10-27] MEDS ORDERED: RT-ALBUTEROL/IPRATROPIUM 3 ML (DUONEB) VIAL INH PRN (21:45)
[2019-10-27] MEDS: RT-ALBUTEROL/IPRATROPIUM 3 ML (DUONEB) VIAL INH SCH (22:01)
--- NOTE | 2019-10-27 22:10 | NUR ---
TIME LINE NOTE: 1949- RESPONDED TO CALL. THIS HEALTH INFORMATION SYSTEMS TECHNICIAN AND ANOTHER RN REPOSITIONED PATIENT IN THE BED. WITH THE ACTIVITY OF REPOSITIONING, O2 SATURATION DECREASED TO 73% WHILE WEARING HOME CPAP AND WITH 8L OF O2. RT CALLED TO BEDSIDE. PLACED ON BIPAP. SETTINGS OF 15/8 AND 65% FIO2. 02 SATURATION OF 94%. 2012- CONTACTED EICU. SPOKE WITH EDIE. INFORMED OF PREVIOUS SITUATION. REQUESTED ORDER FOR THE BIPAP. 2024- ORDER RECEIVED FOR BIPAP. 2041- CONTACTED DR. SAUL. INFORMED OF DECREASED BLOOD PRESSURE. SBP BELOW 90 AND MAP BELOW 65. TREND STARTED POST SPEAKING WITH HIM EARLIER. REQUESTED 1L LR BOLUS X2. PLACE BECERRA. 2050- BECERRA CATHETER PLACED. 100ML RETURN OF DARK CLOUDY URINE.
[2019-10-27] MEDS: inSUlin ASPART (NovoLOG) 1 UNIT/0.01 ML (CHARGE PER UNIT) SQ SCH (23:08)
[2019-10-28] VITALS (27 sets, daily range): BP systolic 98–131; BP diastolic 39–69
[2019-10-28] MEDS: RT-ALBUTEROL/IPRATROPIUM 3 ML (DUONEB) VIAL INH SCH ×6 (02:31→23:13)
[2019-10-28] MEDS ORDERED: PIPERACILLIN/TAZO 4.5 GM VIAL (ZOSYN) IV ONE (03:06)
[2019-10-28] MEDS ORDERED: NS (IVPB) 100 ML ONE (03:07)
[2019-10-28] MEDS: PIPERACILLIN/TAZOBACTAM (BULK) 4.5 GM in NS (IVPB) 100 ML IV SCH ×3 (03:29→18:09)
[2019-10-28] MEDS: fentaNYL INJECTION 100 MCG/2 ML AMP IVP PRN ×4 (03:30→14:08)
[2019-10-28 04:00] LABS: BASOPHILS % (AUTO) 0 % (0-10); EOSINOPHILS % (AUTO) 0 % (0-10); HEMATOCRIT 33 % (40-54); HEMOGLOBIN 10.7 G/DL (13.3-17.7); LYMPHOCYTES # (AUTO) 2.4 X 10^3 (1.0-4.0); LYMPHOCYTES % (AUTO) 10 % (12-44); MEAN CORPUSCULAR HEMOGLOBIN 27 PG (25-34); MEAN CORPUSCULAR HGB CONC 32 G/DL (32-36); MEAN CORPUSCULAR VOLUME 85 FL (80-99); MEAN PLATELET VOLUME 11.1 FL (7.4-10.4); MONOCYTES % (AUTO) 8 % (0-12); NEUTROPHILS # (AUTO) 19.6 X 10^3 (1.8-7.8); NEUTROPHILS % (AUTO) 82 % (42-75); PLATELET COUNT 202 10^3/uL (130-400); WHITE BLOOD COUNT 24.1 10^3/uL (4.3-11.0)
[2019-10-28 04:12] LABS: CALCIUM 8.2 MG/DL (8.5-10.1); CREATININE SERUM 2.02 MG/DL (0.60-1.30); MAGNESIUM 1.7 MG/DL (1.6-2.4); PHOSPHORUS 2.6 MG/DL (2.3-4.7); POTASSIUM 5.2 MMOL/L (3.6-5.0)
[2019-10-28] MEDS: POTASSIUM CL 10MEQ/50ML IVPB 50 ML IV SCH (04:19)
[2019-10-28] MEDS: MAGNESIUM 1 GM/100 ML IVPB 100 ML IV SCH (04:20)
[2019-10-28] MEDS: KCL 20 MEQ TAB (K-DUR) PO SCH (04:21)
[2019-10-28] MEDS: inSUlin ASPART (NovoLOG) 1 UNIT/0.01 ML (CHARGE PER UNIT) SQ SCH ×3 (04:21→18:09)
[2019-10-28] MEDS: NS IV 1000 ML 1,000 ML IV SCH ×5 (04:57→20:35)
--- NOTE | 2019-10-28 04:57 | Pulmonary Consultation ---
History of Present Illness History of Present Illness Date Seen by Provider: Oct 28, 2019 Time Seen by Provider: 04:52 Date of Admission History of Present Illness 48yo with hx of VIVI, morbid obesity s/p gastric sleeve on 10/24/19 pt was started on Abx after surgery secondary to UTI and SOB. After discharge pt states abdominal pain and SOB continued to worsen and he went to [place] ED. PT was dx with severe sepsis and gastric leak and was sent to our ICU with abx therapy since he is a pt of Dr. Tripathi. Rn has been in contact with Dr. Tripathi through the night. Pt's abdominal pain has continue to worsen though the night. He is currenlty on a Fentanyl NURSE CASE MANAGEMENT. Brink cultures, and IVF were started prior to pt transfer. This morning I talked with patient and about current medical condition and treatment. They are upset and worried. I did call and discuss pt with Dr. Tripathi regarding pt's acute abdomen and Pt's need for surgery JANAE. Dr. Tripathi agrees and acknowledged my concerns. I am consulted for ICU management. Allergies and Home Medications Allergies Coded Allergies: No Known Drug Allergies (Unverified , 10/21/19) Home Medications Levofloxacin 750 Mg Tablet, 750 MG PO DAILY, (Reported) FILLED 10-26-2019 #14/14 DAY SUPPLY Meloxicam 15 Mg Tablet, 15 MG PO DAILY, (Reported) Ondansetron HCl 4 Mg Tablet, 4 MG PO Q4 -6H PRN for NAUSEA/VOMITING-1ST LINE, (Reported) Oxycodone HCl 5 Mg/5 Ml Solution, 5-10 ML PO Q4 -6H PRN for PAIN-SEVERE (8-10), (Reported) Pantoprazole Sodium 40 Mg Tablet.dr, 40 MG PO DAILY, (Reported) Past Ezspgft-Ezqfdn-Txdnfd Hx Patient Social History 2nd Hand Smoke Exposure: No Recent Hopitalizations: No Seasonal Allergies Seasonal Allergies: No Past Medical History Surgeries: Yes (SEPTOPLASTY, LEG FRACTURE) Respiratory: Yes Sleep Apnea Cardiac: No Neurological: No Sexually Transmitted Disease: No HIV/AIDS: No Genitourinary: Yes Kidney Stones Gastrointestinal: Yes Chronic Constipation Musculoskeletal: Yes Arthritis Endocrine: No HEENT: Yes (GLASSES) Loss of Vision: Denies Hearing Impairment: Denies Cancer: No Psychosocial: Yes (MILD) Anxiety Integumentary: No Blood Disorders: No Adverse Reaction/Blood Tranf: No (N/A) Review of Systems Time Seen by Provider: 05:00 Constitutional: Fever, Chills, Sweats, Weakness, Malaise, Other Eyes: No: Pain, Vision change, Conjunctivae inflammation, Eyelid inflammation, Other, Redness ENT: No: Ear pain, Ear discharge, Nose pain, Nose discharge, Nose congestion, Mouth pain, Mouth swelling, Throat pain, Throat swelling, Other Respiratory: Cough, Dry, Shortness of breath, SOB with excertion; No: Wheezing, Hemoptysis, Pleuritic Pain Cardiovascular: No: Chest Pain, Palpitations, Orthopnea, Paroxysmal Noc. Dyspnea, Edema, Lt Headedness, Other Gastrointestinal: Nausea, Abdominal Pain, Constipation Genitourinary: No Dysuria, No Frequency, No Incontinence, No Hematuria, No Retention, No Other Musculoskeletal: No: other, neck pain, shoulder pain, arm pain, back pain, hand pain, leg pain, foot pain Neurological: Weakness Sepsis Event Evaluation Height, Weight, BMI Height: '" Weight: lbs. oz. kg; 47.90 BMI Method: Exam Exam Vital Signs Date Time Temp Pulse Resp B/P (MAP) Pulse Ox O2 Delivery O2 Flow Rate FiO2 10/28/19 04:16 NIV Bilevel 40 10/28/19 04:12 36.4 NIV Bilevel 40.00 10/28/19 04:12 94 NIV Bilevel 40 10/28/19 03:00 112 23 119/69 (86) 98 NIV Bilevel 40.00 10/28/19 02:31 111 19 95 40.00 10/28/19 02:00 111 19 112/58 (76) 94 NIV Bilevel 40.00 10/28/19 01:00 112 19 116/52 (73) 94 NIV Bilevel 40.00 10/28/19 01:00 112 10/28/19 00:26 36.9 89 NIV Bilevel 40.00 10/28/19 00:23 92 NIV Bilevel 40 10/28/19 00:00 114 20 106/56 (73) 90 NIV Bilevel 30.00 10/27/19 23:00 122 34 141/59 (86) 91 NIV Bilevel 30.00 10/27/19 22:16 106 22 99 30.00 10/27/19 22:00 109 27 119/44 (69) 99 NIV Bilevel 30.00 10/27/19 21:58 100 NIV Bilevel 30.00 10/27/19 21:16 100 NIV Bilevel 50.00 10/27/19 21:00 37.2 106 97 30 10/27/19 21:00 114 19 116/66 (83) 96 NIV Bilevel 65.00 10/27/19 20:35 118 24 88/37 10/27/19 20:35 24 10/27/19 20:03 117 29 95 65.00 10/27/19 20:02 117 16 94/56 (69) 94 NIV Bilevel 65.00 10/27/19 19:58 37.5 73 NIV Bilevel 65.00 10/27/19 19:12 94 NIV Bilevel 65 10/27/19 19:00 118 127/67 (87) 94 NIV CPAP 8.00 10/27/19 19:00 118 10/27/19 18:00 121 24 136/68 (90) 93 NIV CPAP 8.00 10/27/19 17:54 NIV CPAP 8.00 10/27/19 17:39 NIV CPAP 5.00 10/27/19 17:32 NIV CPAP 4.00 10/27/19 17:15 117 28 116/52 (73) 88 Nasal Cannula 4.00 10/27/19 17:01 119 10/27/19 17:00 37.2 10/27/19 16:50 Nasal Cannula 4.00 I & O 10/28/19 07:00 Intake Total 3400 ml Output Total 425 ml Balance 2975 ml Height & Weight Height: '" Weight: lbs. oz. kg; 47.90 BMI Method: General Appearance: Obese, Severe Distress (secondary to abdominal pain and SOB. ) HEENT: Pharynx Normal Neck: Full Range of Motion, Non Tender, Supple Respiratory: No Accessory Muscle Use, Crackles, Decreased Breath Sounds Cardiovascular: No Gallop, No JVD, No Murmur, Tachycardia Capillary Refill: Less Than 3 Seconds Gastrointestinal: distended, tenderness (generalized abdominal pain. PT is currently on Fentanyl gtt. ), other (extensive eccymosis the covers the lower half of pt's abdomen. ) Extremity: Normal Capillary Refill, Non Tender, No Pedal Edema Neurologic/Psychiatric: Alert, Oriented x3 Skin: Normal Color, Warm/Dry Lymphatic: No Adenopathy Results Lab Laboratory Tests 10/27/19 18:50 10/28/19 03:33 Assessment/Plan Assessment/Plan s/p elective gastric sleeve 10/25 Acute severe sepsis - secondary to gastric perforation and pneumonia -Continue Zosyn, and Vanco -Add eraxis -CT scan from [place] shows gastric perforation -Aggressive IVF - pt has had 3 liters of IVF since admission -Will give 1 additional liter of NS now -CT scan from [facility] -"Large amount of pneumoperitoneum with ascites, oral contrast extravasati on, concerning for GI perforation, likely stomach, postop changes from gastric sleeve procedure. Recommend surgical consultation." -Pt has abdominal sepsis and needs to go to OR. I called and discussed pt with Dr. Tripathi this morning. Acute respiratory failure -Currently improved on BiPAP -Check ABG -Will probably need ventilator after surgery until pt improves clinically -Continue to monitor close Post op pneumonia -Continue abx -Brink cultures pending -Repeat cultures here - pt had cultures done at [facility] ED -Duoneb Acute renal failure with hyperkalemia secondary to sepsis. -Will give 2amps bicarb, 10units of insulin IV, and 1 amp of D50 -IVF and monitor -Will repeat labs later today Metabolic lactic acidosis secondary to sepsis -IVF -Pt has already had 3 liters. Will give another liter of NS -Await reflex LA -Pt is not hypotensive Anemia -Monitor -Check occults stool LETICIA CABRAL DO Oct 28, 2019 04:56
[2019-10-28] MEDS ORDERED: inSUlin (REGULAR) HUMAN 1 UNIT/0.01 ML (CHARGE PER UNIT) IV ONE (05:00)
[2019-10-28] MEDS ORDERED: NS IV 1000 ML 1,000 ML IV SCH (05:00)
[2019-10-28] MEDS ORDERED: MAGNESIUM 1 GM/100 ML IVPB 100 ML IV ONE (05:00)
[2019-10-28] MEDS ORDERED: DEXTROSE 50% 50 ML (IMS) SYR IV ONE (05:00)
[2019-10-28] MEDS ORDERED: SODIUM BICARB 8.4% 50 MEQ/50 ML (ABBOTT) SYR IV ONE (05:00)
[2019-10-28 06:10] LABS: ABG BASE EXCESS -3.8 MMOL/L (-2.5-2.5); ABG OXYGEN SATURATION 92 % (94-100); ABG PCO2 39 MMHG (35-45); ABG PH 7.35 (7.37-7.43); ABG PO2 65 MMHG (79-93); ABG TCO2 22.2 MMOL/L (21.0-31.0)
[2019-10-28 06:12] LABS: INSPIRED O2 40%; PATIENT TEMP 36.4; VENTILATOR NO
[2019-10-28 06:13] LABS: ALLENS TEST POS
[2019-10-28] MEDS ORDERED: SODIUM BICARB 8.4% 50 MEQ/50 ML VIAL IV ONE ×3 (06:30→12:15)
[2019-10-28 06:42] LABS: BILIRUBIN,URINE NEGATIVE (NEGATIVE); CLARITY,URINE CLEAR; COLOR,URINE YELLOW; GLUCOSE, URINE (UA) NEGATIVE (NEGATIVE); KETONES,URINE NEGATIVE (NEGATIVE); LEUKOCYTE ESTERASE ,URINE NEGATIVE (NEGATIVE); NITRITE,URINE NEGATIVE (NEGATIVE); PROTEIN,URINE NEGATIVE (NEGATIVE)
[2019-10-28 06:49] LABS: BACTERIA,URINE MODERATE /HPF
[2019-10-28 06:55] LABS: WBC,URINE 0-2 /HPF
[2019-10-28 06:56] LABS: AMORPHOUS SEDIMENT,UR FEW AMOR URATES /LPF; SQUAMOUS EPITHELIAL CELL,UR RARE /HPF
[2019-10-28] MEDS ORDERED: FLU QUADRIvalent (5+ YOA) 2019-2020 (AFLURIA) 0.5 ML IM ONE (07:00)
[2019-10-28] MEDS ORDERED: ANIDULAFUNGIN INJECTION 200 MG in NS (IVPB) 250 ML IV NR (07:30)
--- NOTE | 2019-10-28 08:11 | Diagnostic Imaging Report ---
Portable erect AP chest at 324 hours. INDICATION: Pneumonia. FINDINGS: As on the prior exam of 10/25/2019, there is shallow inspiration. Allowing for this technical factor, the heart is stable in size. There still appears to be some atelectasis/infiltrate in the left lung base although the left retrocardiac region is not well penetrated. The lungs where visualized are otherwise clear. In the interval since the prior exam, a band of increased density has developed in the right lung base. I suspect that this is most likely due to the right hemidiaphragm that there is now gas in the hepatic flexure. This does not have the typical appearance of a pneumoperitoneum. However, if there is clinical concern regarding an pneumoperitoneum, then CT of the abdomen and pelvis would be recommended. The mediastinum is not widened. The osseous structures are intact. IMPRESSION: 1. There still appears to be persistent involvement of the left lung base by atelectasis/infiltrate on this suboptimal exam. 2. The gas beneath the suspected right hemidiaphragm is most likely gas within the hepatic flexure and not a pneumoperitoneum. Additional considerations as above. Dictated by: Dictated on workstation # [id number]
[2019-10-28] MEDS ORDERED: BUP/EPI 0.5% 1:200,000 (SENSORCAINE) 30 ML VIAL ONE (08:44)
[2019-10-28] MEDS ORDERED: VANCOMYCIN 2000 MG/NS 500 ML IVPB IV SCH ×2 (09:00)
[2019-10-28] MEDS: PANTOPRAZOLE 40 MG (PROTONIX) VIAL IV SCH (09:03)
[2019-10-28] MEDS ORDERED: LACTATED RINGERS 1,000 ML IV PRN (09:06)
[2019-10-28] MEDS ORDERED: ONDANSETRON 4 MG/2 ML (SDV) Z0FRAN ONE (09:08)
[2019-10-28] MEDS ORDERED: DEXAMETHASONE 10 MG/ML (DECADRON) 1 ML VIAL ONE (09:08)
[2019-10-28] MEDS ORDERED: SEVOFLURANE (ULTANE) 15 ML INHAL SOLN ONE ×10 (09:08→12:55)
[2019-10-28] MEDS ORDERED: proPOfol 200 MG/20 ML (DIPRIVAN) VIAL IV ONE (09:08)
[2019-10-28] MEDS ORDERED: SUCCINYLCHOLINE INJ 100 MG/5 ML SYR ONE (09:08)
[2019-10-28] MEDS ORDERED: ROCURONIUM 10 MG/ML 5 ML SYRINGE IV ONE ×3 (09:08→11:43)
[2019-10-28] MEDS ORDERED: fentaNYL INJECTION 100 MCG/2 ML AMP ONE (09:09)
[2019-10-28] MEDS ORDERED: MIDAZOLAM 2 MG/2 ML (VERSED) VIAL ONE (09:09)
[2019-10-28 09:36] LABS: BILIRUBIN,TOTAL 1.9 MG/DL (0.1-1.0); CALCIUM 7.9 MG/DL (8.5-10.1); CREATININE SERUM 1.79 MG/DL (0.60-1.30); MAGNESIUM 1.9 MG/DL (1.6-2.4); POTASSIUM 5.1 MMOL/L (3.6-5.0); TOTAL PROTEIN 5.6 GM/DL (6.4-8.2)
--- NOTE | 2019-10-28 09:42 | Progress Note-Pre Operative ---
Pre-Operative Progress Note H&P Reviewed The H&P was reviewed, patient examined and no changes noted. Date Seen by Provider: Oct 28, 2019 Time Seen by Provider: 09:30 Date H&P Reviewed: Oct 28, 2019 Time H&P Reviewed: 09:30 Pre-Operative Diagnosis: gastric leak HARRISON SAUL MD Oct 28, 2019 09:42
--- NOTE | 2019-10-28 09:52 | NUR ---
0950 PT TO OR VIA BED ACCOMPANIED BY OR STAFF AND FAMILY.
[2019-10-28] MEDS ORDERED: HEParin (CENTRAL IV FLUSH) 500 UNIT/5 ML SYR ONE (10:23)
[2019-10-28] MEDS ORDERED: PHENYLEPHRINE 100 MCG/ML 10 ML (ANESTHESIA) SYR ONE (11:45)
[2019-10-28 13:14] LABS: BASOPHILS % (AUTO) 0 % (0-10); EOSINOPHILS # (AUTO) 0.1 10^3/uL (0.0-0.3); EOSINOPHILS % (AUTO) 0 % (0-10); HEMATOCRIT 31 % (40-54); LYMPHOCYTES # (AUTO) 2.5 X 10^3 (1.0-4.0); LYMPHOCYTES % (AUTO) 11 % (12-44); MEAN CORPUSCULAR HEMOGLOBIN 28 PG (25-34); MEAN CORPUSCULAR HGB CONC 32 G/DL (32-36); MEAN CORPUSCULAR VOLUME 86 FL (80-99); MEAN PLATELET VOLUME 10.7 FL (7.4-10.4); MONOCYTES % (AUTO) 9 % (0-12); NEUTROPHILS # (AUTO) 18.9 X 10^3 (1.8-7.8); NEUTROPHILS % (AUTO) 81 % (42-75); PLATELET COUNT 227 10^3/uL (130-400); RED CELL DISTRIBUTION WIDTH 15.2 % (10.0-14.5); WHITE BLOOD COUNT 23.4 10^3/uL (4.3-11.0)
--- NOTE | 2019-10-28 13:17 | Progress Note-Post Operative ---
Post-Operative Progess Note Surgeon (s)/Communications Project Lead (s) Surgeon HARRISON SAUL MD Communications Project Lead: georgina martinez SOLVENT MIXER Pre-Operative Diagnosis gastric leak Post-Operative Diagnosis gastric leak at gastric cardia at staple line Procedure & Operative Findings Date of Procedure 10/28/19 Procedure Performed/Findings diagnostic laparoscopy. gastrorrhaphy. Anesthesia Type get Estimated Blood Loss Estimated blood loss (mL): 500 Specimens/Packing Specimens Removed none HARRISON SAUL MD Oct 28, 2019 13:17
[2019-10-28 13:27] LABS: PROTHROMBIN TIME PATIENT 23.4 SEC (12.2-14.7)
[2019-10-28] MEDS ORDERED: PROPOFOL DRIP (ICU) 100 ML IV ONE (13:29)
[2019-10-28 13:37] LABS: ALBUMIN 2.7 GM/DL (3.2-4.5); BILIRUBIN,TOTAL 1.9 MG/DL (0.1-1.0); CALCIUM 7.4 MG/DL (8.5-10.1); CREATININE SERUM 2.1 MG/DL (0.60-1.30); MAGNESIUM 1.8 MG/DL (1.6-2.4); POTASSIUM 5.7 MMOL/L (3.6-5.0); TOTAL PROTEIN 5.2 GM/DL (6.4-8.2)
[2019-10-28] MEDS ORDERED: fentaNYL INJECTION 1,250 MCG in NS (IVPB) 250 ML IV SCH (14:00)
--- NOTE | 2019-10-28 14:06 | Diagnostic Imaging Report ---
INDICATION: Central line placement Portable chest 1:51 PM Left subclavian central line tip projects over the SVC. There is ET tube projecting over the trachea. There is an NG tube that appears to enter the stomach. Lungs are clear. There are no effusions or pneumothoraces. IMPRESSION: No acute abnormalities in the chest. Dictated by: Dictated on workstation # [id number]
[2019-10-28] MEDS: PROPOFOL DRIP (ICU) 100 ML IV SCH ×4 (14:11→21:56)
--- NOTE | 2019-10-28 14:59 | Physical Therapy Progress Note ---
Therapy Progress Note Patient currently intubated, will monitor status. TONG BEGUM PT Oct 28, 2019 14:59
[2019-10-28] MEDS ORDERED: LACTATED RINGERS 1,000 ML IV ONE (15:00)
--- NOTE | 2019-10-28 15:13 | NUR ---
LATE ENTRY POST SURGERY: PT BACK TO ROOM ICU 5 AT 1322, PAR NURSE Freya SANDHU RN IN ROOM ALONG WITH ANESTHESIA PROVIDER. PT ON VENTILATOR AT SETTINGS PER RT ORDERS. DR CABRAL NOTIFIED OF PT AT 1330 AND NEW ORDERS RECEIVED TO START PT ON PROPOFOL AND FENTANYL DRIP (SEE ORDER HX). PT NOTED TO HAVE 3 LAP SITES AND ADDITIONAL LAP FROM LAINE DRAIN SITE. LAINE DRAIN SITE NOTED TO HAVE COPIOUS AMOUNTS OF SANGUINEOUS DRAINAGE. DR SAUL NOTIFIED OF TOTAL LAINE DRAIN, APPROXIMATELY 600 ML. OUTPUT AT 1350. ORDERS RECEIVED TO PLACE LAINE DRAIN TO SUCTION IF NEEDED. 1445 DR SAUL NOTIFIED OF PT'S DECREASED URINE OUTPUT 100ML, NEW ORDERS RECEIVED TO GIVE 1 LITER BOLUS OF LACTATED RINGERS. ORDERS ENTERED AND BOLUS STARTED. PT'S AT BEDSIDE NO NEEDS NOTED AT THIS TIME WILL CONTINUE TO MONITOR CLOSELY.
[2019-10-28 15:22] LABS: ABG BASE EXCESS -5.8 MMOL/L (-2.5-2.5); ABG OXYGEN SATURATION 97 % (94-100); ABG PCO2 45 MMHG (35-45); ABG PO2 87 MMHG (79-93); ABG TCO2 21.4 MMOL/L (21.0-31.0); ALLENS TEST POSITIVE; INSPIRED O2 16; PATIENT TEMP 36.4; VENTILATOR YES
[2019-10-28 15:23] LABS: ABG PH 7.27 (7.37-7.43)
--- NOTE | 2019-10-28 15:29 | NUR ---
DR SAUL CALLED NEW ORDERS RECEIVED SEE ORDER HX.
[2019-10-28] MEDS ORDERED: FLUCONAZOLE 200 MG/100 ML 100 ML IV NR (15:30)
[2019-10-28] MEDS ORDERED: LACTATED RINGERS 1,000 ML IV SCH ×2 (17:30→18:45)
--- NOTE | 2019-10-28 17:37 | Consultation - Hospitalist ---
HPI History of Present Illness: HPI/Chief Complaint Janae Corrales is a 48-year-old male with past medical history of morbid obesity who presented two days after a sleeve gastrectomy with abdominal pain. He reports that he went home and took a nap and when he woke up he was having severe abdominal pain. The pain is in his left upper abdomen. He reports occasional pain in his back. The pain is constant. He denies any fevers or chills. He denies any chest pain. He reports shortness of breath. He denies any nausea or vomiting. Source: patient Exam Limitations: no limitations Date Seen 10/28/19 Attending Physician Deonna Tripathi MD PCP Sid Weeks DO Referring Physician Date of Admission Oct 27, 2019 at 16:50 Home Medications & Allergies Home Medications Reviewed patient Home Medication Reconciliation performed by pharmacy medication reconciliations ict support technicians and/or nursing. Patients Allergies have been reviewed. Allergies Allergies Coded Allergies No Known Drug Allergies (Unverified10/21/19) Past Eleyqqw-Jnmdzg-Ykdami Hx Past Med/Social Hx: Reviewed Nursing Past Med/Soc Hx Patient Social History 2nd Hand Smoke Exposure: No Recent Hopitalizations: No Seasonal Allergies Seasonal Allergies: No Past Medical History Sexually Transmitted Disease: No HIV/AIDS: No Genitourinary: Kidney Stones Gastrointestinal: Chronic Constipation Musculoskeletal: Arthritis Loss of Vision: Denies Hearing Impairment: Denies Psychosocial: Anxiety History of Blood Disorders: No Adverse Reaction to Blood Ochoa: No (N/A) Review of Systems Constitutional: no symptoms reported EENTM: no symptoms reported Respiratory: short of breath Cardiovascular: no symptoms reported Gastrointestinal: abdominal pain Genitourinary: no symptoms reported Musculoskeletal: no symptoms reported Skin: no symptoms reported Psychiatric/Neurological: No Symptoms Reported Physical Exam Physical Exam Vital Signs Vital Signs - First Documented 10/27/19 10/27/19 10/27/19 10/27/19 10/27/19 16:50 17:00 17:01 17:15 19:12 Temp 37.2 Pulse 119 Resp 28 B/P (MAP) 116/52 (73) Pulse Ox 88 O2 Delivery Nasal Cannula O2 Flow Rate 4.00 FiO2 65 Capillary Refill : Less Than 3 SecondsGreater Than 3 Seconds Height, Weight, BMI Height: '" Weight: lbs. oz. kg; 47.90 BMI Method: General Appearance: Obese, Severe Distress Neck: Normal Inspection, Supple Respiratory: No Accessory Muscle Use, No Respiratory Distress, Decreased Breath Sounds Cardiovascular: No Murmur, Tachycardia Gastrointestinal: Abnormal Bowel Sounds (absent), Distended; No Guarding, No Rebound; Tenderness Extremity: Normal Inspection, Non Tender, No Pedal Edema Neurologic/Psychiatric: Alert, Oriented x3 Skin: Warm/Dry, Ecchymosis (diffuse lower abdominal) Results Results/Procedures Labs Laboratory Tests 10/27/19 18:50 10/28/19 03:33 10/28/19 08:44 10/28/19 13:05 Patient resulted labs reviewed. Imaging: Reviewed Imaging Report Assessment/Plan Assessment and Plan Assess & Plan/Chief Complaint status post sleeve gastrectomy Anastomotic leak Dr. Tripathi consulted, planning for surgery today Started on broad-spectrum antibiotics Acute kidney injury superimposed on chronic kidney disease lactic acidosis Creatinine 1.8 this morning, baseline appears to be around 1.4 lactic acid mildly elevated Continue IV fluid resuscitation acute respiratory failure with hypoxia Continue supplemental oxygen and BiPAP as needed anemia Hemoglobin 10.7 on arrival continue to monitor Morbid obesity Clinically significant, no acute management needs DVT prophylaxis: Held for surgery Diagnosis/Problems Diagnosis/Problems (1) Gastric anastomotic leak Status: Acute (2) S/P laparoscopic sleeve gastrectomy Status: Acute (3) Lactic acidosis Status: Acute (4) Acute respiratory failure with hypoxia Status: Acute (5) Acute kidney injury superimposed on chronic kidney disease Status: Acute (6) Morbid obesity Status: Chronic Clinical Quality Measures DVT/VTE Risk/Contraindication: Risk Factor Score Per Nursin RFS Level Per Nursing on Admit: 4+=Very High FATOUMATA EASTMAN MD Oct 28, 2019 17:37
--- NOTE | 2019-10-28 22:00 | NUR ---
THIS RN NOTIFIED E-ICU OF LACTIC ACID AND CONTINUED DECREASED URINE OUTPUT (10 ML SINCE 7PM). NEW ORDERS RECEIVED FOR VBG, 1 L NS BOLUS AND 25 G OF 25% ALBUMIN X1 NOW.
--- NOTE | 2019-10-28 22:15 | NUR ---
BECERRA CATHETER FLUSHED AT THIS TIME TO ENSURE PATENCY; BLADDER SCANNER REVEALS 0 ML IN BLADDER.
[2019-10-28 23:40] LABS: ABG BASE EXCESS -5.3 MMOL/L (-2.5-2.5); ABG OXYGEN SATURATION 99 % (94-100); ABG PCO2 45 MMHG (35-45); ABG PO2 126 MMHG (79-93); ABG TCO2 21.5 MMOL/L (21.0-31.0)
[2019-10-28 23:43] LABS: ABG PH 7.28 (7.37-7.43); INSPIRED O2 45; PATIENT TEMP 37.7; VENTILATOR YES
[2019-10-28] MEDS ORDERED: NS IV 1000 ML 1,000 ML IV ONE (23:45)
[2019-10-28] MEDS ORDERED: ALBUMIN 25% 25 GM/100 ML IV (PRE-MIX) IV ONE (23:45)
[2019-10-28] MEDS ORDERED: ALBUMIN 25% 25 GM/100 ML 100 ML IV ONE (23:45)
[2019-10-29] VITALS (13 sets, daily range): BP systolic 116–151; BP diastolic 47–61
[2019-10-29] MEDS: inSUlin ASPART (NovoLOG) 1 UNIT/0.01 ML (CHARGE PER UNIT) SQ SCH ×2 (00:35→06:55)
[2019-10-29] MEDS: PROPOFOL DRIP (ICU) 100 ML IV SCH ×4 (00:51→09:28)
[2019-10-29 02:19] LABS: BASOPHILS % (AUTO) 0 % (0-10); EOSINOPHILS # (AUTO) 0.1 10^3/uL (0.0-0.3); EOSINOPHILS % (AUTO) 0 % (0-10); HEMATOCRIT 26 % (40-54); HEMOGLOBIN 8.2 G/DL (13.3-17.7); LYMPHOCYTES # (AUTO) 2.3 X 10^3 (1.0-4.0); LYMPHOCYTES % (AUTO) 15 % (12-44); MEAN CORPUSCULAR HEMOGLOBIN 28 PG (25-34); MEAN CORPUSCULAR HGB CONC 32 G/DL (32-36); MEAN CORPUSCULAR VOLUME 87 FL (80-99); MEAN PLATELET VOLUME 10.5 FL (7.4-10.4); MONOCYTES # (AUTO) 1.4 X 10^3 (0.0-1.0); MONOCYTES % (AUTO) 9 % (0-12); NEUTROPHILS % (AUTO) 76 % (42-75); PLATELET COUNT 162 10^3/uL (130-400); RED CELL DISTRIBUTION WIDTH 15.6 % (10.0-14.5); WHITE BLOOD COUNT 15.8 10^3/uL (4.3-11.0)
[2019-10-29 02:37] LABS: CALCIUM 7.3 MG/DL (8.5-10.1); CREATININE SERUM 3.35 MG/DL (0.60-1.30); MAGNESIUM 1.9 MG/DL (1.6-2.4)
[2019-10-29] MEDS: RT-ALBUTEROL/IPRATROPIUM 3 ML (DUONEB) VIAL INH SCH ×2 (02:39→07:21)
[2019-10-29 03:15] LABS: ABG BASE EXCESS -6.6 MMOL/L (-2.5-2.5); ABG OXYGEN SATURATION 96 % (94-100); ABG PCO2 38 MMHG (35-45); ABG PO2 76 MMHG (79-93)
[2019-10-29 03:18] LABS: ABG PH 7.31 (7.37-7.43); ALLENS TEST YES-POS
[2019-10-29 03:19] LABS: INSPIRED O2 45%; PATIENT TEMP 36; VENTILATOR YES
--- NOTE | 2019-10-29 03:30 | NUR ---
URINE OUTPUT CONTINUES TO BE LOW POST 1 L NS BOLUS AND ALBUMIN ADMINISTRATION (10 MORE ML). E-ICU NOTIFIED. NEW ORDER RECEIVED FOR 1 L NS BOLUS.
[2019-10-29] MEDS: PIPERACILLIN/TAZOBACTAM (BULK) 4.5 GM in NS (IVPB) 100 ML IV SCH (03:59)
[2019-10-29] MEDS ORDERED: NS IV 1000 ML 1,000 ML IV ONE (04:00)
[2019-10-29] MEDS ORDERED: FUROSEMIDE 40 MG/4 ML INJ (LASIX) IVP ONE (04:45)
--- NOTE | 2019-10-29 04:55 | Pulmonary Progress Note ---
Subjective Time Seen by a Provider: 04:50 Subjective/Events-last exam Pt is sedated on vent. Sepsis Event Evaluation Height, Weight, BMI Height: '" Weight: lbs. oz. kg; 47.90 BMI Method: Focused Exam Lactate Level 10/28/19 23:40: Lactic Acid Level 2.73*H 10/29/19 02:09: Lactic Acid Level 3.30*H 10/29/19 04:25: Lactic Acid Level Laboratory Tests Test 10/29/19 02:09 10/29/19 04:25 Lactic Acid Level 3.30 MMOL/L (0.50-2.00) *H Exam Exam Vital Signs Date Time Temp Pulse Resp B/P (MAP) Pulse Ox O2 Delivery O2 Flow Rate FiO2 10/29/19 04:02 36.9 10/29/19 04:00 121 18 120/53 (75) 93 Mechanical Ventilator 45.00 10/29/19 04:00 93 Mechanical Ventilator 45 10/29/19 03:55 123 122/54 10/29/19 03:00 123 22 122/54 (76) 92 Mechanical Ventilator 45.00 10/29/19 02:00 123 20 132/58 (82) 93 Mechanical Ventilator 45.00 10/29/19 01:00 121 10/29/19 01:00 121 20 116/57 (76) 93 Mechanical Ventilator 45.00 10/29/19 00:51 116 126/53 10/29/19 00:00 94 Mechanical Ventilator 45 10/29/19 00:00 116 19 126/53 (77) 93 Mechanical Ventilator 45.00 10/28/19 23:00 112 19 104/48 (66) 94 Mechanical Ventilator 45.00 10/28/19 22:31 37.7 45.00 10/28/19 22:00 109 24 103/55 (71) 93 Mechanical Ventilator 40.00 10/28/19 21:56 112 100/51 10/28/19 21:00 112 19 100/51 (67) 93 Mechanical Ventilator 40.00 10/28/19 21:00 22 10/28/19 20:00 93 Mechanical Ventilator 45 10/28/19 20:00 37.3 10/28/19 20:00 112 20 98/42 (60) 98 Mechanical Ventilator 40.00 10/28/19 19:00 112 19 103/49 (67) 94 Mechanical Ventilator 40.00 10/28/19 19:00 112 10/28/19 18:36 111 114/52 10/28/19 18:00 111 21 98/48 (65) 97 Mechanical Ventilator 40.00 10/28/19 17:15 45 10/28/19 17:00 113 20 110/54 (72) 92 Mechanical Ventilator 40.00 10/28/19 16:09 94 Mechanical Ventilator 40 10/28/19 16:00 117 19 118/45 (69) 94 Mechanical Ventilator 40.00 10/28/19 15:58 117 118/72 10/28/19 15:49 60 10/28/19 15:31 36.8 10/28/19 15:00 118 17 131/55 (80) 96 Mechanical Ventilator 80.00 10/28/19 14:11 117 118/72 10/28/19 14:00 37.1 22 112/58 (76) 93 Mechanical Ventilator 10/28/19 14:00 Mechanical Ventilator 10/28/19 14:00 118 17 114/48 (70) 99 Mechanical Ventilator 80.00 10/28/19 13:50 Mechanical Ventilator 10/28/19 13:50 Mechanical Ventilator 80.00 10/28/19 13:50 18 110/58 (75) 94 Mechanical Ventilator 10/28/19 13:40 22 114/55 (74) 94 Mechanical Ventilator 10/28/19 13:40 130 25 96 80 10/28/19 13:40 134 10/28/19 13:35 Mechanical Ventilator 10/28/19 13:30 19 111/62 (78) 94 Mechanical Ventilator 10/28/19 13:22 36.7 21 99/39 (59) 99 Mechanical Ventilator 10/28/19 13:22 Mechanical Ventilator 10/28/19 09:00 114 29 112/66 (81) 93 High Flow N/C 8.00 10/28/19 08:00 114 38 101/58 (72) 93 High Flow N/C 8.00 10/28/19 07:55 94 Nasal Cannula 8.00 10/28/19 07:02 37.1 10/28/19 07:00 29 10/28/19 07:00 115 29 114/67 (83) 86 High Flow N/C 8.00 10/28/19 06:42 High Flow N/C 8.00 10/28/19 06:41 118 3/2/20 06:00 116 29 117/68 (84) 95 NIV Bilevel 40.00 10/28/19 05:00 114 21 126/68 (87) 96 NIV Bilevel 40.00 I & O 10/29/19 07:00 Intake Total 3550 ml Output Total 1690 ml Balance 1860 ml Height & Weight Height: '" Weight: lbs. oz. kg; 47.90 BMI Method: General Appearance: Obese, Other (sedated on vent) Neck: Normal Inspection, Supple Respiratory: No Accessory Muscle Use, No Respiratory Distress, Decreased Breath Sounds Cardiovascular: No Murmur, Tachycardia Capillary Refill: Greater Than 3 Seconds Gastrointestinal: distended, other (extensive eccymosis the covers the lower half of pt's abdomen. ) Extremity: Normal Inspection, Non Tender, No Pedal Edema Skin: Warm/Dry, Ecchymosis (diffuse lower abdominal) Results Lab Laboratory Tests 10/27/19 18:50 10/28/19 03:33 10/28/19 08:44 10/28/19 13:05 10/29/19 02:09 Assessment/Plan Assessment/Plan s/p elective gastric sleeve 10/25 Acute respiratory failure -Pt remained on ventilator post surgery -Will probably need ventilator after surgery until pt improves clinically -Continue to monitor close Acute severe sepsis with gastric perforation s/p surgical repair yesterday. -Continue Zosyn, eraxis and change Vancomycin to Zyvox -Culture abdominal fluid -Pt had 1 liter out of LAINE drain since surgery. -Aggressive IVF - Pt has had 3 liters of LR and 2 liters of NS since surgery -EICU gave 25gms of albumin last night -[facility] -"Large amount of pneumoperitoneum with ascites, oral contrast extravasation, concerning for GI perforation, likely stomach, postop changes from gastric sleeve procedure. Recommend surgical consultation." -Pt has abdominal sepsis and needs to go to OR. I called and discussed pt with Dr. Tripathi this morning. Acute worsening renal failure with metabolic acidosis and hyperkalemia secondary to sepsis. -Give 2 amps of bicarb -RN has 20cc of UO throughout the night -I discussed with who is at bedside. I recommend transfer for nephrology support. She wants to discuss with other family members first prior to transfer. Will await family's consent prior to transferring. I attempted to answer all of her questions to the best of my ability. Dr. Tripathi notified of need to transfer for nephrology support. Constipation/Ileus -No BM since 10/24 Anemia -Monitor -Check occults stool stated after discussion with family they want pt to go to [facility]. They do understand [facility] is closer hospital and their insurance may not pay for transfer to since it is not the closest hospital. 60min of icu time spent w ith pt, family, and medical staff. Critical Care: Critically Ill Patient Time spent with patient (mins): 60 LETICIA CABRAL DO Oct 29, 2019 04:55
[2019-10-29] MEDS ORDERED: SODIUM BICARB 8.4% 50 MEQ/50 ML VIAL IV ONE (05:00)
[2019-10-29] MEDS ORDERED: LACTATED RINGERS 1,000 ML IV SCH ×3 (05:00→08:30)
--- NOTE | 2019-10-29 05:00 | NUR ---
DR. CABRAL HERE AT THIS TIME. THIS RN UPDATED HIM ON PT'S CONDITION, VS, LABS AND CONTINUED LOW URINE OUTPUT. NEW ORDER RECEIVED FOR 1 L LR BOLUS AT THIS TIME. SEE ORDER HISTORY FOR ADDITIONAL ORDERS. DR. CABRAL IN TO SPEAK WITH PT'S SIGNIFICANT OTHER. DR. CABRAL DISCUSSED TRANSFER DUE TO PT'S CONTINUED POOR KIDNEY FUNCTION. PT'S SIGNIFICANT OTHER VISIBLY UPSET AND DEMANDING TO KNOW WHY HE (THE PATIENT) WASN'T TAKEN TO SURGERY MONDAY AND WHY SURGERY WAS PUT OFF UNTIL MONDAY. DR. CABRAL INFORMED PT'S SIGNIFICANT OTHER THAT HE WAS NOT THE SURGEON AND THAT QUESTION NEEDS TO BE ASKED TO DR. SAUL. DR. CABRAL ANSWERED ALL QUESTIONS AT THIS TIME. PT'S SIGNIFICANT OTHER REQUESTING TRANSFER TO . DR. CABRAL NOTIFIED.
[2019-10-29] MEDS: POTASSIUM CL 10MEQ/50ML IVPB 50 ML IV SCH (06:31)
[2019-10-29] MEDS: KCL 20 MEQ TAB (K-DUR) PO SCH (06:47)
[2019-10-29] MEDS: MAGNESIUM 1 GM/100 ML IVPB 100 ML IV SCH (06:47)
[2019-10-29 07:46] LABS: ABG BASE EXCESS -4.6 MMOL/L (-2.5-2.5); ABG OXYGEN SATURATION 83 % (94-100); ABG PCO2 43 MMHG (35-45); ABG PO2 49 MMHG (79-93); ABG TCO2 22.1 MMOL/L (21.0-31.0)
[2019-10-29 07:49] LABS: ALLENS TEST YES-POS; INSPIRED O2 45%; PATIENT TEMP 36.7; VENTILATOR YES
[2019-10-29] MEDS ORDERED: ONDA-105 PO (08:07)
[2019-10-29] MEDS ORDERED: PANT40TA3 PO (08:07)
[2019-10-29] MEDS ORDERED: LEVO750T39 PO (08:07)
--- NOTE | 2019-10-29 08:07 | Physical Therapy Progress Note ---
Therapy Progress Note Patient is sedated on ventilator at this time. Will continue to monitor progress and initiate PT when appropriate. TONG BEGUM PT Oct 29, 2019 08:07
[2019-10-29] MEDS ORDERED: OXYC5SOL19 PO (08:10)
--- NOTE | 2019-10-29 08:25 | NUR ---
UNABLE TO SPEAK WITH PT AT THIS TIME- MED REC WAS ENTERED USING THE EXT MED HISTORY (I CALLED [facility] [id number] TO VERIFY DIRECTIONS AND ENVIRONMENTAL TECH DATES). I COMPARED THE EXT MED HISTORY TO SURGERY DISCHARGE INFORMATION FROM LAST WEEK TO COMPLETE.
[2019-10-29] MEDS: PANTOPRAZOLE 40 MG (PROTONIX) VIAL IV SCH (08:27)
--- NOTE | 2019-10-29 08:40 | Diagnostic Imaging Report ---
INDICATION: Pneumonia. Frontal chest obtained at 0324 a.m. and is compared to yesterday. ET tube tip overlies mid trachea. NG tube tip is not well seen. Left-sided subclavian central line is seen with tip overlying the SVC. There is very poor inspiration. There is persistent infiltrate in the left lung base with some probable left pleural fluid. IMPRESSION: Life support lines as above. Persistent left basilar infiltrate with small left pleural effusion. The study is limited by very poor inspiration. Dictated by: Dictated on workstation # [id number]
--- NOTE | 2019-10-29 08:41 | Anesthesia-General Post-Op ---
General Patient Condition Mental Status/LOC: Same as Preop Cardiovascular: Satisfactory Nausea/Vomiting: Absent Respiratory: Satisfactory Pain: Controlled Complications: Absent Post Op Complications Complications None Follow Up Care/Instructions Patient Instructions None needed. Anesthesia/Patient Condition Patient Condition Patient is doing well, no complaints, stable vital signs, no apparent adverse anesthesia problems. No complications reported per nursing. MICHAEL CAMP CRNA Oct 29, 2019 08:41
[2019-10-29] MEDS ORDERED: ANIDULAFUNGIN INJECTION 100 MG in NS (IVPB) 100 ML IV SCH (09:00)
[2019-10-29] MEDS ORDERED: FLUCONAZOLE 200 MG/100 ML 50 ML, EMPTY IV BAG (PVC) 1 EA IV SCH ×2 (09:00)
--- NOTE | 2019-10-29 10:44 | Occ Therapy Progress Note ---
Therapy Progress Note Pt is currently intubated and sedated. Hold therapy at this time. Will continue to monitor and initiate OT when pt able to participate. MICHAEL ARTEAGA OT Oct 29, 2019 10:44
--- NOTE | 2019-10-29 13:07 | NUR ---
PT DC TO AT 1055 [facility]IA [facility], REPORT GIVEN PRIOR TO TRANSFER TO [facility] AT . [facility] SENT WITH [facility], IV FENTANYL D/C WITNESSED WASTE BY Dorota GARCIA RN OF 75 ML.
--- NOTE | 2019-10-29 13:38 | NUR ---
Received dietary consult regarding pt's vent status. Note pt has transferred to at this time. Dorota Taylor, MS, RD, LD
--- NOTE | 2019-10-29 14:43 | OPERATIVE REPORT ---
DATE OF SERVICE: 10/28/2019 PREOPERATIVE DIAGNOSES: Right upper abdominal quadrant pain, peritonitis, leukocytosis. POSTOPERATIVE DIAGNOSIS: Gastric staple line leak at the gastric cardia. PROCEDURE: Diagnostic laparoscopy, laparoscopic repair of gastric leak. SURGEON: Deonna Saul MD. PUPPET MAKER: Omer Hart APRN. ANESTHESIA: General endotracheal. ESTIMATED BLOOD LOSS: 500 mL. FINDINGS: Copious serous fluids within the peritoneal cavity. There was a leak at the staple line at the gastric cardia. No solitario identified in a short segment which may indicate staple product failure. DISPOSITION: The patient tolerated the procedure well. INDICATIONS: The patient is a 48-year-old male with a history of morbid obesity as well as medical comorbidities related to his obesity including sleep apnea, hypertension and degenerative joint disease. He is in our surgical weight loss program for the gastric sleeve resection. After undergoing the necessary evaluations and tests as well as a medically supervised weight loss, he underwent a gastric sleeve resection on 10/24/2019. He did well after the surgery; however, did have issues with nausea and crampy abdominal pain on postoperative day #1 and we kept him admitted for IV hydration. He also did have leukocytosis and we got a chest x-ray, which did show a left lung basilar atelectasis as well as urinalysis, which was positive for leukocyte esterase and he was treated with antibiotics. The following day, he felt well and he was afebrile and his white count was improving. He was also tolerating liquids and had adequate pain control with oral pain medication. 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 He was worked up with a CT scan as well as laboratory work stating that there was some contrast extravasation from the previous gastric staple line. This was not sent over and it was unconfirmed that this was contained or not. He was transferred to [facility], where his vital signs were stable. He was awake and alert, not experiencing any fever, chills and was also afebrile. His laboratory work did show that he was significantly dehydrated and we started him on IV hydration as well as broad spectrum antibiotics and antifungals. DESCRIPTION OF PROCEDURE: The patient was brought to the operating room, laid supine on the table. After adequate IV pain and sedative medications and general endotracheal intubation, the abdomen was prepped and draped in standard surgical fashion. A 0.5% Marcaine was used to anesthetize the overlying skin in the peritoneal lining to all previous 5 abdominal incisions. A Veress needle was then inserted in the left upper quadrant incision and the abdomen was then insufflated to 15 mmHg pressure. The Veress needle removed and a 5 mm XL trocar placed followed by a 5 mm 45-degree angle laparoscope visualizing serous fluid within the peritoneal cavity. There was no purulence. Under direct visualization, we then proceeded to place the previous ports as well as the liver retractor and the left lobe of the liver retracted anteriorly and superiorly. The patient was then placed in steep reverse Trendelenburg position. There was a significant amount of omental and mesenteric adhesions towards the staple line, which was intended by the use of fibrin glue along the staple line. Using gentle dissection, we were able to peel the omental hand mica plate layer of the staple line. No visible perforation was identified at this time and under direct visualization, once the stomach remnant was completely visualized we then placed a 36-Icelandic ViSiGi under direct visualization and directed this into the pylorus. The pylorus was then occluded and an air leak test was once again done and there was a small amount of bubbling noted within the superior aspect of the staple line near the gastric cardia. Once this was identified, this was clamped and isolated. We then looked closely at the area which appeared void of solitario which may have indicated a staple product failure. We then used a RASHEEDA polyglycolic acid coated black load to staple and transect the segment of the stomach at the gastric cardia taking the area of perforation as well. Good hemostasis was observed. The abdomen was then copiously irrigated with approximately 4 liters of warm saline and then suctioned out. A leak test with the ViSiGi was then performed to 35 atmospheres of pressure with no leak identified. The ViSiGi was then removed and a nasogastric tube was then placed under direct visualization. A 19-Icelandic Dinh-Escalante drain was then placed at the area of the previous leak and brought out through the lateral 5 mm port and sutured to the skin using 3-0 nylon suture. The remainder of the abdomen was explored. Again, there was a previous liver steatosis and early fibrotic changes identified. What was visualized of the gallbladder, liver, small bowel, colon appeared normal. The fascia and peritoneum to the 10 to 15 mm port sites were then closed under direct visualization using a Gus-Annette device and 0 Vicryl suture. The abdomen was desufflated and remaining ports removed. The remainder of the skin incisions were closed using 4-0 Monocryl running subcuticular sutures. Another note, a leak test was once again performed by instilling saline and there was no leak identified. The patient tolerated the procedure well. We will continue the ventilator due to his decreased pulmonary reserve from bilateral atelectasis as well as pneumonia. We will also proceed with broad spectrum antibiotic coverage including piperacillin, tazobactam, vancomycin as well as Eraxis for fungal coverage. We will also continue the NG tube and start TPN for protein calorie support. In approximately 5 to 7 days, we will then proceed with a limited upper GI with Gastrografin through the NG tube and confirmed no leak before proceeding with removal of the nasogastric tube and starting a liquid phase 1 clear liquid diet. We will also proceed with DVT prophylaxis with early ambulation, calf SCDs as well as Lovenox. We will also proceed with pain control with a PIANO PLAYER. Job ID: [id number] DocumentID: [id number] Dictated Date: 10/28/2019 16:53:22 Home Health Care Case Manager Date: 10/29/2019 00:31:17 Dictated By: DEONNA SAUL MD [facility] CENT[facility]anu
--- NOTE | 2019-10-29 17:36 | Progress Note - Hospitalist ---
Subjective HPI/CC On Admission Date Seen by Provider: Oct 29, 2019 Time Seen by Provider: 09:05 Janae Corrales is a 48-year-old male with past medical history of morbid obesity who presented two days after a sleeve gastrectomy with abdominal pain. He reports that he went home and took a nap and when he woke up he was having severe abdominal pain. The pain is in his left upper abdomen. He reports occasional pain in his back. The pain is constant. He denies any fevers or chills. He denies any chest pain. He reports shortness of breath. He denies any nausea or vomiting. Subjective/Events-last exam He is intubated and sedated. There is family at the bedside. All questions were answered and everyone expressed understanding. Focused Exam Lactate Level 10/29/19 04:25: Lactic Acid Level 2.98*H 10/29/19 07:30: Lactic Acid Level 2.55*H 10/29/19 09:26: Lactic Acid Level 2.82*H Objective Exam Vital Signs Vital Signs Date Time Temp Pulse Resp B/P (MAP) Pulse Ox O2 Delivery O2 Flow Rate FiO2 10/29/19 13:05 10/29/19 10:00 121 23 93 Mechanical Ventilator 45.00 10/29/19 08:00 45 10/29/19 04:02 36.9 Capillary Refill : Less Than 3 SecondsGreater Than 3 Seconds General Appearance: No Apparent Distress, Obese, Other (Intubated and sedated) Respiratory: Lungs Clear, Normal Breath Sounds, No Respiratory Distress, Other (Intubated and mechanically ventilated) Cardiovascular: No Murmur, Tachycardia Gastrointestinal: Soft, Abnormal Bowel Sounds, Distended Extremity: Normal Inspection, Pedal Edema Neurologic/Psychiatric: Other (Sedated) Skin: Warm/Dry, Ecchymosis (Abdominal) Results/Procedures Lab Laboratory Tests 10/29/19 02:09 Patient resulted labs reviewed. Imaging: Reviewed Imaging Report Assessment/Plan Assessment and Plan Assess & Plan/Chief Complaint Acute kidney injury superimposed on chronic kidney disease Likely ATN Lactic acidosis Creatinine 3.35 this morning, baseline appears to be around 1.4 Likely postoperative ATN lactic acid mildly elevated Continue IV fluid resuscitation Dr. Leo facilitated transfer to [facility] for nephrology evaluation with worsening kidney function status post sleeve gastrectomy Anastomotic leak Underwent surgery with Dr. Tripathi 3/2 to repair an anastomotic leak Continue broad-spectrum antibiotics Acute respiratory failure with hypoxia Endotracheally intubated Intubated and sedated Anemia Hemoglobin 10.7 on arrival, down to 8.2 this morning continue to monitor Morbid obesity Clinically significant, no acute management needs DVT prophylaxis: Held for surgery Diagnosis/Problems Diagnosis/Problems (1) Gastric anastomotic leak Status: Acute (2) S/P laparoscopic sleeve gastrectomy Status: Acute (3) Lactic acidosis Status: Acute (4) Acute respiratory failure with hypoxia Status: Acute (5) Acute kidney injury superimposed on chronic kidney disease Status: Acute (6) Morbid obesity Status: Chronic Clinical Quality Measures DVT/VTE Risk/Contraindication: Risk Factor Score Per Nursin RFS Level Per Nursing on Admit: 4+=Very High FATOUMATA EASTMAN MD Oct 29, 2019 17:36
== END 2019-10-29 10:55 | disposition designated cancer center or children's hospital (05) | DRG 326 ==
LOC: ICU 16:50
PROVIDERS: ADMIT Surgery; ATTEND Surgery
PROC: 5A09357 Assistance with Respiratory Ventilation, Less than 24 Consecutive Hours, Continuous Positive Airway Pressure (ICD-10-PCS; 2019-10-27)
PROC: 0DQ64ZZ Repair Stomach, Percutaneous Endoscopic Approach (ICD-10-PCS; principal; 2019-10-28 10:49)
DX: K95.89 Other complications of other bariatric procedure (principal); A41.9 Sepsis, unspecified organism; R65.20 Severe sepsis without septic shock; N17.0 Acute kidney failure with tubular necrosis; J96.01 Acute respiratory failure with hypoxia; J18.9 Pneumonia, unspecified organism; E87.2 Acidosis; K56.7 Ileus, unspecified; G47.33 Obstructive sleep apnea (adult) (pediatric); F41.9 Anxiety disorder, unspecified; M19.90 Unspecified osteoarthritis, unspecified site; Y83.8 Other surgical procedures as the cause of abnormal reaction of the patient, or of later complication, without mention of misadventure at the time of the procedure; D64.9 Anemia, unspecified; G47.30 Sleep apnea, unspecified; K59.09 Other constipation; I12.9 Hypertensive chronic kidney disease with stage 1 through stage 4 chronic kidney disease, or unspecified chronic kidney disease; N18.9 Chronic kidney disease, unspecified
CPT/HCPCS: 36415; 36600; 71045; 80048; 80053; 81000; 82805; 82962; 83605; 83735; 84100; 84478; 85007; 85025; 85027; 85610; 85730; 87040; 87070; 87088; 87205; 87804; 94002; 94003; 94640; 94660; 94664; 94799

== ENCOUNTER → 2019-11-27 | Outpatient (CLI) | payer BC ==
[~2019-11-27] MED LIST changes: +LEVO750T39 PO; +ONDA-105 PO; +OXYC5SOL19 PO; +PANT40TA3 PO
[2019-11-27 09:49] LABS: BILIRUBIN,TOTAL 0.7 MG/DL (0.1-1.0); CALCIUM 8.3 MG/DL (8.5-10.1); CREATININE SERUM 1.87 MG/DL (0.60-1.30); POTASSIUM 3.5 MMOL/L (3.6-5.0); TOTAL PROTEIN 8.9 GM/DL (6.4-8.2)
--- NOTE | 2019-11-27 10:30 | Diagnostic Imaging Report ---
PROCEDURE: CT abdomen and pelvis without contrast. TECHNIQUE: Multiple contiguous axial images were obtained through the abdomen and pelvis without the use of intravenous contrast. Auto Exposure Controls were utilized during the CT exam to meet ALARA standards for radiation dose reduction. INDICATION: Status post recent gastric sleeve surgery. COMPARISON: Chest radiograph dated 11/25/2019 FINDINGS: Included portions of the lung bases show interval development of large left-sided pleural effusion. Left lung is not entirely included on this exam, but there does appear to be near complete atelectasis of the left lower lobe. CT ABDOMEN: Patient is status post previous gastric sleeve surgery. Small bowel loops are nondistended. Normal appendix cannot be adequately identified, but there is no pericecal inflammation. There are few scattered colonic diverticuli, but no CT evidence of acute diverticulitis. There is mild stranding of the omentum. There may be trace amount of free fluid. There is also focal loculated perisplenic fluid collection seen laterally that measures 12.2 x 4.2 cm. There is no free air. Liver has cirrhotic morphology. Hypodense cysts are noted within the dome of the right lobe of the liver. There is also mild splenomegaly. No focal splenic lesions are seen on this noncontrast exam. The kidneys, adrenal glands, and pancreas have an unremarkable noncontrast CT appearance. No abnormal mesenteric or retroperitoneal adenopathy is identified. Osseous structures show no acute abnormalities. CT PELVIS: Trace amount of free fluid is also noted within the pelvis. There is no loculated fluid collection or free air. Urinary bladder is unopacified. No calculi are seen within the urinary bladder. No abnormal adenopathy is identified. Osseous structures show no acute abnormalities. IMPRESSION: 1. Interval development of massive left-sided pleural effusion resulting in significant atelectasis of the left lower lobe. 2. Postsurgical changes of previous gastric sleeve surgery. 3. Small amount of free fluid within the abdomen and pelvis as well as loculated perisplenic fluid collection. This could be on the basis of a sterile postsurgical fluid collection such as seroma or hematoma. Postsurgical abscess, however, cannot be entirely excluded. 4. Cirrhotic morphology to the liver. Presence of mild splenomegaly also suggests underlying portal venous hypertension. 5. Few scattered chronic diverticula, but no CT evidence of acute diverticulitis. Dictated by: Dictated on workstation # [id number]
== END ==
LOC: RAD 09:08
PROVIDERS: ATTEND Surgery
DX: J90 Pleural effusion, not elsewhere classified (principal); J98.11 Atelectasis; R16.0 Hepatomegaly, not elsewhere classified; K57.90 Diverticulosis of intestine, part unspecified, without perforation or abscess without bleeding; Z98.84 Bariatric surgery status
CPT/HCPCS: 36415; 74176; 80053

== ENCOUNTER 2019-11-28 12:57 | Outpatient (CLI) | payer BC ==
[~2019-11-28] VITALS: Wt 151.0 kg
[2019-11-28 13:10] VITALS: BP 129/78
[2019-11-28] MEDS ORDERED: morphine INJ 10 MG/ML 1ML (SYR OR VIAL) ONE (14:01)
[2019-11-28] MEDS ORDERED: morphine INJ 10 MG/ML 1ML (SYR OR VIAL) IM STA (14:03)
--- NOTE | 2019-11-28 14:15 | NUR ---
morphine order changed to IV per Dr. Tripathi, pt's dialysis cath used for IV access, flushed w/ 10 ml saline flush prior to and 20 ml flush post 5 mg IV morphine slow push.
[2019-11-28] MEDS ORDERED: morphine INJ 10 MG/ML 1ML (SYR OR VIAL) IVP STA (14:32)
--- NOTE | 2019-11-28 14:37 | NUR ---
pt rates pain 04/06, new order for another 4mg IVP morphine, see emar for details.
--- NOTE | 2019-11-28 14:57 | Diagnostic Imaging Report ---
INDICATION: Left-sided pleural effusion. Sonographic interrogation of left chest does show large pleural effusion. Marking was provided on the left chest for performance of a thoracentesis by Dr. Tripathi. IMPRESSION: Large left pleural effusion. Dictated by: Dictated on workstation # [id number]
[2019-11-28 15:00] VITALS: BP 125/70
--- NOTE | 2019-11-28 15:04 | OPERATIVE REPORT ---
DATE OF SERVICE: 11/28/2019 PREOPERATIVE DIAGNOSIS: Symptomatic left pleural effusion. POSTOPERATIVE DIAGNOSIS: Symptomatic left pleural effusion. PROCEDURE: Left thoracentesis. SURGEON: Harrison Saul MD. ANESTHESIA: Local. ESTIMATED BLOOD LOSS: Minimal. FINDINGS: 2700 mL of blood tinged transudative fluid. DISPOSITION: The patient tolerated the procedure well. INDICATIONS: The patient is a 48-year-old male known to us. He has a history of morbid obesity as well as medical comorbidities including sleep apnea, liver cirrhosis, hypertension. He did develop a gastric leak requiring repair and he did develop renal failure requiring hemodialysis. Since being transferred to [facility], he has improved; however, a followup CT scan did show a significant sized left pleural effusion. There were no intra-abdominal lesions identified. The patient is also symptomatic and does have significant shortness of breath upon exertion. DESCRIPTION OF PROCEDURE: The patient underwent an ultrasound and marked the posterolateral aspect of the left thorax. The area was then prepped and draped in standard surgical fashion. A 1% lidocaine was then used to anesthetize the skin, subcutaneous tissue, muscle layers as well as the parietal pleura. A vertical skin incision was made using a 15 blade and the catheter and trocar were then introduced withdrawing of blood tinged transudative fluid. The catheter was then advanced over the trocar without any resistance and connected to vacutainer where 2700 mL of fluid withdrawn. Once completely evacuated under positive pressure, the catheter was removed while holding direct pressure with an air occlusive dressing with Op-Site. The patient tolerated the procedure well. We will get a post-procedure chest x-ray and then discharge him home. We will have him follow up in the office in one week. Job ID: [id number] DocumentID: [id number] Dictated Date: 11/28/2019 14:46:56 Missile Pad Mechanic Date: 11/28/2019 15:04:40 Dictated By: HARRISON SAUL MD [facility]
--- NOTE | 2019-11-28 15:05 | NUR ---
dressing to right posterior thorax saturated w/ serousanguinous drainage. removed old dressing and replaced with sterile pressure dressing of 4x4 and secured w/ opsite. Pt rates discomfort to left side 3/10, no dyspnea observed, respirations regular, unlabored. Will continue to monitor.
--- NOTE | 2019-11-28 15:12 | Diagnostic Imaging Report ---
INDICATION: Thoracentesis COMPARISON: 10/29/2019 chest; CT abdomen and pelvis 11/27/2019. FINDINGS: Single view of the chest demonstrates interval reduction of left-sided effusion. There is no postprocedure pneumothorax. Consolidation persists in the left base. The right lung is clear. The right central venous catheter is in good position. There is no overt pulmonary edema. IMPRESSION: No postprocedure pneumothorax. Dictated by: Dictated on workstation # [id number]
--- NOTE | 2019-11-28 15:20 | NUR ---
CXR reviewed w/ Dr. Tripathi, orders to discharge pt to home. Dressing remains C/D/I to posterior left back, will continue to monitor.
--- NOTE | 2019-11-28 15:30 | NUR ---
PT discharged to home, reviewed discharge instructions w/ pt, pt verbalizes understanding. Pt discharged via w/c to private car driven by s/o, escorted out by staff member.
== END 2019-11-28 15:30 | disposition home or self-care (01) ==
LOC: RAD 12:57
PROVIDERS: ATTEND Surgery
DX: J90 Pleural effusion, not elsewhere classified (principal)
CPT/HCPCS: 32554; 71045; 76942

== ENCOUNTER → 2019-12-11 | Outpatient (CLI) | payer BC ==
--- NOTE | 2019-12-11 08:35 | Diagnostic Imaging Report ---
INDICATION: Pleural effusion. COMPARISON: 11/28/2019. TECHNIQUE: Two radiographs of the chest are dated 12/11/2019. FINDINGS: The right IJ dialysis catheter is stable. The cardiac silhouette is within normal limits in size. No significant pulmonary vascular congestion. The right lung is clear. A small left basilar pleural parenchymal opacity is present, significantly improved from the prior examination. The majority of this opacity is felt to relate to pleural fluid. No pneumothorax. No acute osseous abnormality. Surgical clips are present within the upper abdomen. IMPRESSION: Significantly improved small left basilar pleural parenchymal opacity, felt to relate to a combination of predominantly pleural fluid with adjacent mild atelectasis and/or infiltrate. Improved aeration of the lungs. Dictated by: Dictated on workstation # [id number]
== END ==
LOC: RAD 08:02
PROVIDERS: ATTEND Surgery
DX: J90 Pleural effusion, not elsewhere classified (principal)
CPT/HCPCS: 71046